=== PATIENT | male | born 1955 | race Caucasian/White ===

== ENCOUNTER 2024-11-26 07:38 | Outpatient (CLI) | payer MEDICARE, SELFPAY ==
--- OUTSIDE RECORDS SUMMARY | 2024-11-26 07:51 | XMS_ITS | Referral Summary ---
Author Organization [facility] Address [address] [place] [address] Care Team Providers Care Stoneworking Belt Sander Name Role Phone Gunnar Miguel MD Primary Care Provider Encounters Date Type Department Care Team Description 11/22/2024 Telephone [facility] [address] [place] [address] Medical Office Building [address], [address] [place] [phone] Analilia Anaya RN TM scheduling and labs 11/22/2024 Results Follow-Up [facility] [address] [facility] 2nd Floor [address] [place] [address] Robel Graves MD Surgical pathology 11/21/2024 7:51 AM CDT Anesthesia Event [facility] [address] [place] [phone] Dano Monae MD 11/21/2024 8:00 AM CDT - 11/21/2024 8:30 AM CDT Surgery [facility] [address] [place] [phone] Robel Graves MD ESOPHAGEAL BALLOON DISTENTION STUDY DIAGNOSTIC WITH PROVOCATION 11/21/2024 7:02 AM CDT - 11/21/2024 8:35 AM CDT Hospital Encounter [facility] [address] [place] [phone] Robel Graves MD Achalasia Discharge Disposition: Discharge to home or self care 10/31/2024 Telephone [facility] [address] [facility] Medical Office Building [address], [address] [place] [address] Analilia Anaya RN GI Preprocedure; Scheduling Testing/Treatment; AC hold recs from Last 3 Months Allergies No known active allergies Medications clopidogreL (PLAVIX) 75 mg tablet Take 1 tablet (75 mg total) by mouth daily Active rosuvastatin (CRESTOR) 20 mg tablet Take 1 tablet (20 mg total) by mouth daily Active Active Problems Problem Noted Date Diagnosed Date Achalasia 10/31/2024 Social History Tobacco Use Types Packs/Day Years Used Date Smoking Tobacco: Never Tobacco Cessation:Counseling Given: Not Answered AUDIT-C Answer Date Recorded Q1: How often do you have a drink containing alc ohol? 2-3 times a week 11/21/2024 Q2: How many drinks containi ng alcohol do you have on a typical day when you are drinking? 3 or 4 11/21/2024 Q3: How often do you have si x or more drinks on one occasion? Less than monthly 11/21/2024 Personal Safety Answer Date Recorded Have you ever been in or are you currently in a harmful physical or emotional relationship or is someone making you feel afraid or unsafe? 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 Gender Identity Not on file Sexual Orientation Not on file Last Filed Vital Signs Vital Sign Reading Time Taken Comments Blood Pressure 124/67 11/21/2024 8:30 AM CDT Pulse 50 11/21/2024 8:30 AM CDT Temperature 36.4 C (97.6 F) 11/21/2024 7:24 AM CDT Respiratory Rate 21 11/21/2024 8:30 AM CDT Oxygen Saturation 99% 11/21/2024 8:30 AM CDT Inhaled Oxygen Concentration - - Weight 88.5 kg (195 lb) 11/21/2024 7:24 AM CDT Height 190.5 cm (6' 3) 11/21/2024 7:24 AM CDT Body Mass Index 24.37 11/21/2024 7:24 AM CDT Plan of Treatment Not on file Procedures Procedure Name Priority Date/Time Associated Diagnosis Comments SURGICAL PATHOLOGY Routine 11/21/2024 7:56 AM CDT Achalasia ENDO ADD ON ESOPHAGOGASTRODUODENOSCOPY BIOPSY 11/21/2024 7:51 AM CDT Achalasia Special Needs endoflip ESOPHAGEAL BALLOON DISTENTIO N STUDY DIAGNOSTIC WITH PROVOCATION 11/21/2024 7:51 AM CDT Achalasia Special Needs endoflip EGD 11/21/2024 7:43 AM CDT from Last 3 Months Results * Surgical pathology (11/21/2024 7:56 AM CDT) Tissue (Gastric/Stomach biopsy) 11/21/2024 7:56 AM CDT Narrative PATHOLOGY [facility] - 11/22/2024 7:57 AM CDT [address] [address] Tele: Lilly Cervantes MD - Ship Ceiler Note to Patients: This report may contain a detailed description of human tissue sent by a health care provider to the laboratory for pathologic evaluation. The content of this report is essential for diagnosis and may provide important critical findings. This information may be unfamiliar to patients to review without a medical professional present. It is advised that the patient review this report in the presence of a health care provider who can answer questions and explain the details. SURGICAL PATHOLOGY REPORT Patient Name: NICHOLE KIM Address: [address] [place] [address] Gender: M : 1955 (Age: 68) Service: Gastro Location: [facility], Hospital #: [id number] Patient Type: [facility] SAME DAY SURGERY Taken: 11/21/2024 Received 11/21/2024 Reported: 11/22/2024 Physician(s): Orion Lan Dr., M.D. DIAGNOSIS: Stomach-biopsy: - Minimal histologic change esb/11/22/2024 07:57 Examining Pathologist: Tino Arce M.D. Report Reviewed and Electronically Signed By Tino Arce M.D. SPECIMEN TYPE: A: GASTRIC BIOPSIES CLINICAL IMPRESSION AND HISTORY: Suspected achalasia. Patchy mild inflammation was found in the gastric body and antrum. GROSS DESCRIPTION: Received in formalin labeled [facility] and gastric biopsies is a 0.2 x 0.2 x 0.2 cm king tissue fragment. The specimen is filtered and entirely submitted in A1. jxi/11/21/2024 14:01 [facility] MICROSCOPIC DESCRIPTION: Review of the part A material reveals variably oriented gastric mucosa. The surface is intact and free of ulceration. No metaplastic changes are noted. Exocytosis of significant inflammatory cells into the epithelium is not evident. No dysplastic or malignant changes are noted. On routine staining of the material no H. pylori organisms are noted. Deeper glands do not exhibit dropout. Scattered chronic inflammation is noted within the lamina propria in a superficial fashion. Clerical Data Follows A; 27785 REPORT IMAGES AND/OR SCANNED DOCUMENTS ONLY VIEWABLE IN PDF FORMAT The immunohistochemical test(s) cited in this report, if any, was developed and its performance characteristics determined by [facility]. It has not been cleared or approved by the U.S. Food and Drug Administration. The FDA has determined that such clearance or approval is not necessary. This test is used for clinical purposes. It should not be regarded as investigational or for research. [facility] is certified under the Clinical Laboratory Improvement Amendments of 1988 (CLIA) as qualified to perform high complexity testing. Immunostains were performed on formalin-fixed paraffin embedded tissue using a polymer diaminobenzidine chromogen detection system. Antibodies used may include clone SP1 (rabbit monoclonal, estrogen receptor), clone 1E2 (rabbit monoclonal progesterone receptor), Ki-67 (rabbit monoclonal, 30-9), CD117 (rabbit polyclonal, c-kit), and anti-Her-2/maureen (4B5) (rabbit monoclonal primary antibody). In the event that immunohistochemistry or special stains have been performed, attending physician has confirmed appropriateness of controls. Frozen section, operating room consultation, gross examination and dissection, and case sign out may have been performed in part or completely in the following laboratories: [facility], [address] [facility], [place], [place] [address] [place] [address], [address], [place] [address]. Robel Graves MD LAB PATHOLOGY ORDERABLES Fi nal Result PATHOLOGY [facility] Laboratory Receiving [address] [place] [address] * EGD (11/21/2024 7:43 AM CDT) Anatomical Region Laterality Modality Other Narrative Procedure Note Robel Graves MD - 11/21/2024 7:43 AM CDT ENDOSCOPY LAB Patient Name: Nichole Kim Procedure Date: 11/21/2024 7:43 AM Admit Type: Outpatient Room: [facility] Date of : 1955 Instrument Name: [id number] Gender: Male Note Status: Finalized Procedure: Upper GI endoscopy Indications: Suspected achalasia; Suspected achalasia withrecent EGD with botox inj Comorbidities See the other procedure note for documentation of comorbidities Providers: Robel Graves M.D. Referring MD: Gunnar Miguel M.D. Medicines: Monitored Anesthesia Care Complications: No immediate complications. Estimated Blood Loss: Estimated blood loss: none. Procedure: Pre-Anesthesia Assessment: - Prior to the procedure, a History and Physicalwas performed, and patient medications, allergies and sensitivities were reviewed. The patient'stolerance of previous anesthesia was reviewed. - Immediately prior to administration ofmedications, the patient was re-assessed for adequacy to receive sedatives. The benefits, risks, and alternatives to theprocedure and sedation were discussed and informed consentwas obtained. The scope was passed under direct vision. The Endoscope was introduced through the mouth, and advanced to the second part of duodenum. The upperGI endoscopy was accomplished without difficulty. The patient tolerated the procedure well. Findings: Relatively straight and mildly dilated esophagus with retainedcontents that were suctioned immediately. A hypertonic lower esophagealsphincter was noted at 51 cm from the incisors with moderate resistance with endoscope advancement. With the patient in the left lateral decubitus position, a 16 cm long 3 mm diameter functional lumen imaging probe (FLIP), with a volume-based barostat bag, was placed at the lower esophageal sphincter using endoscopic visualization for thediagnostic evaluation of achalasia. Saline was infused into the bag to a volumeof 60 mL. The observed distensibility at that volume was less than 0.5 mm2/mmHg with a minimum diameter of 4 mm. FLIP Topography wasperformed using stepwise distensions and demonstrated diminished contractility. The catheter was deflated and withdrawn. Patchy mild inflammation characterized by adherent blood and erythema was found in the gastric body and in the gastric antrum. Biopsieswere taken with a cold forceps for histology. The examined duodenum was normal. Impression: - Relatively straight and mildly dilated esophagus with retained contents that were suctioned immediately. A hypertonic lower esophagealsphincter with resistance noted. FLIP confirms nonspastic achalasia. - Gastritis. Biopsied. - Normal examined duodenum. Recommendation: - The patient will be observed post-procedure,until all discharge criteria are met. - Observe patient's clinical course. - Continue present medications. - Await pathology results. - Resume previous diet. - Arrange telemedicine visit with me to discuss therapeutic options including peroral endoscopic myotomy. - In the unusual situation that you developabdominal, bleeding or other significant problems in the days following this procedure please call [phone] ask for my nurse, Analilia Anaya. After hours and evenings please call [phone] and speak to theGI fellow dust control engineer. Please tell the fellow that Dr. Graves did your procedure and that you were instructed to have the fellow call me or thephysician covering for me to discuss the management of your condition. If you have an urgent problem, please goto the nearest emergency room and have the ER doctorcall my office during the day or [facility] transfer ([phone]) center after hours and weekends to arrange admission or transfer to our facility. Attending Participation: I personally performed the entire procedure. Electronically signed by Robel Graves MD Robel Graves M.D. 11/21/2024 8:07:47 AM This document was signed electronically. Number of Addenda: 0 Note Initiated On: 11/21/2024 7:43 AM Scope In: Scope Out: Robel Graves MD ENDOSCOPY PROCEDURES Final Result from Last 3 Months Insurance MEDICARE MEDICARE [employer] SENIOR SUPPLEMENT Member Subscriber Plan / Payer (Ef fective 2024-Present) Name:Nichole Kim Relation to Subscriber:Self Name:Nichole Kim Payer ID:[id number] Group ID:[id number] Type:[employer] Address: [address] [address] [place] [address] Advance Directives For more information, please contact: [phone] * Full Code (Latest Code Status on File) Date Activated Date Inactivated Comments 11/21/2024 7:18 AM 11/21/2024 12:36 PM Care Teams Stoneworking Belt Sander Relationship Specialty Start Date End Date Gunnar Miguel MD [address] [place] [id number] PCP - General Internal Medicine 10/28/24
--- OUTSIDE RECORDS SUMMARY | 2024-11-26 07:51 | XMS_ITS | Clinical Summary ---
Author Organization [facility] Address [address] [place] [address] Care Team Providers Care Humanities Department Chair Name Role Phone Gunnar Migule MD Primary Care Provider [phone] Allergies No known active allergies Medications clopidogreL (PLAVIX) 75 mg tablet Take 1 tablet (75 mg total) by mouth daily Active rosuvastatin (CRESTOR) 20 mg tablet Take 1 tablet (20 mg total) by mouth daily Active Active Problems Problem Noted Date Diagnosed Date Achalasia 10/31/2024 Encounters Date Type Department Care Team Description 11/22/2024 Telephone [facility] [address] [facility] Medical Office Building [address], [address] [place] [phone] Analilia Anaya RN TM scheduling and labs 11/22/2024 Results Follow-Up [facility] [address] [facility] 2nd Floor [address] [place] [address] Robel Graves MD Surgical pathology 11/21/2024 8:00 AM CDT - 11/21/2024 8:30 AM CDT Surgery [facility] [address] [place] [phone] Robel Graves MD ESOPHAGEAL BALLOON DISTENTION STUDY DIAGNOSTIC WITH PROVOCATION 11/21/2024 7:51 AM CDT Anesthesia Event [facility] [address] [place] [phone] Dano Monae MD 11/21/2024 7:02 AM CDT - 11/21/2024 8:35 AM CDT Hospital Encounter [facility] [address] [place] [address] Robel Graves MD Achalavirgena Discharge Disposition: Discharge to home or self care 10/31/2024 Telephone [facility] [address] [facility] [address], [address] [place] [address] Analilia Anaya RN GI Preprocedure; Scheduling Testing/Treatment; AC hold recs from Last 3 Months Surgical History Surgery Date Site/Laterality Comments HERNIA REPAIR Medical History Medical History Date Comments High cholesterol CAD (coronary artery disease) Social History Tobacco Use Types Packs/Day Years [...] on file 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 Gender Identity Not on file Sexual Orientation Not on file Obstetrics History Last Filed Vital Signs Vital Sign Reading [...] 11/21/2024 7:24 AM CDT Plan of Treatment Health Maintenance Due Date Last Done Comments Colon Cancer Screening-Colonoscopy 1955 Depression Screening 1955 Hepatitis C Screening 1955 Prostate Cancer Screening-PSA 1955 Hepatitis B Screening 1972 Well Visit 65+ 12/14/2019 Covid-19 Vaccine (8 2023-2 5 season) 2024 02/20/2024, 02/22/2023, 02/25/2022, Additional history exists Fall Risk Assessment 11/21/2025 11/21/2024 DTaP/Tdap/Td Vaccine (3 - Td or Tdap) 07/18/2033 07/18/2023, 03/16/2021 Pneumococcal vaccine 65+ Completed 03/16/2021, 02/26 Zoster Vaccine Completed 09/29/2023, 07/18/2023 Influenza Vaccine Completed 02/20/2024, , 02/25/2022, Additional history exists Procedures Procedure Name Priority Date/Time Associated Diagnosis [...] biopsy) 11/21/2024 7:56 AM CDT Narrative PATHOLOGY [facility] - 11/22/2024 7:57 AM CDT [address] [address] Tele: Lilly Cervantes MD - Environmental Protection Inspector Note to Patients: This report may contain [...] PATHOLOGY REPORT Patient Name: NICHOLE KIM Address: [address] [place] [address] Gender: M : 1955 (Age: 68) Service: Gastro Location: [facility], Hospital #: [id number] Patient Type: [facility] SAME DAY SURGERY [...] GROSS DESCRIPTION: Received in formalin labeled NICHOLE KIM and gastric biopsies is a 0.2 x 0.2 x 0.2 cm king tissue fragment. The specimen is filtered and entirely submitted in A1. jxi/11/21/2024 14:01 [facility] MICROSCOPIC DESCRIPTION: Review of the part A [...] a superficial fashion. Clerical Data Follows A; [id number] REPORT IMAGES AND/OR SCANNED DOCUMENTS ONLY VIEWABLE IN PDF FORMAT The immunohistochemical test(s) cited in this report, if any, was developed and its performance characteristics determined by [facility]. It has not been cleared or approved by the U.S. Food and Drug Administration. The FDA has determined that such clearance or approval is not necessary. This test is used for clinical purposes. It should not be regarded as investigational or for research. [facility] is certified under the Clinical Laboratory [...] part or completely in the following laboratories: [facility], [address] [place] [address], [address] [place] [address]. Robel Graves MD LAB PATHOLOGY ORDERABLES Fi nal Result PATHOLOGY [facility] Laboratory Receiving [address] [place] [address] * EGD (11/21/2024 7:43 AM CDT) Anatomical Region Laterality Modality Other Narrative Procedure Note Robel Graves MD - 11/21/2024 7:43 AM CDT ENDOSCOPY LAB Patient Name: Nichole Kim Procedure Date: 11/21/2024 7:43 AM Admit Type: Outpatient Room: [facility] Date of : 1955 Instrument Name: [id number] [...] the days following this procedure please call [phone] ask for my nurse, Analilia Anaya. After hours and evenings please call [phone] and speak to theGI fellow land commissioner. Please tell the fellow that Dr. Graves did your procedure and that you were instructed to have the fellow call me or thephysician covering for me to discuss the management of your condition. If you have an urgent problem, please goto the nearest emergency room and have the ER doctorcall my office during the day or [facility] transfer ([phone]) center after hours and weekends to arrange [...] Months Insurance MEDICARE MEDICARE [employer]ET[employer] SENIOR SUPPLEMENT Advance Directives For more information, please contact: [phone] * Full Code (Latest Code Status on File) Date Activated Date Inactivated Comments 11/21/2024 7:18 AM 11/21/2024 12:36 PM Care Teams Humanities Department Chair Relationship Specialty Start Date End Date Gunnar Miguel MD [address] [place], [place] [id number] PCP - General Internal Medicine 10/28/24
--- OUTSIDE RECORDS SUMMARY | 2024-11-26 07:51 | XMS_ITS | Encounter Summary ---
Author Organization [facility] Address [address] [place] [address] Phone Care Team Providers Care Electrician Underground Name Role Phone Gunnar Miguel MD Primary Care Provider [phone] Reason for Visit * Reason Onset Date Comments Test Results 11/22/2024 Encounter Details Date Type Department Care Team (Late st Contact Info) Description 11/22/2024 Results Follow-Up [facility] Gastroenterology [address] [facility] 2nd Floor [address] [place] [address] Roebl Graves MD [address] [place] [address] Surgical pathology Social History Tobacco Use Types Packs/Day Years Used Date Smoking Tobacco: Never AUDIT-C Answer Date Recorded Q1: How often [...] on file 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
--- OUTSIDE RECORDS SUMMARY | 2024-11-26 07:52 | XMS_ITS | Clinical Summary ---
Author Organization [facility] Address [facility] [place] [address] Care Team Providers Care Operations Lead Name Role Phone Gunnar Miguel MD Primary Care Provider [phone] Allergies No known active allergies Medications clopidogrel (PLAVIX) 75 MG tablet Take 1 tablet (75 mg total) by mouth daily. Active rosuvastatin (CRESTOR) 20 MG tablet Take 1 tablet (20 mg total) by mouth nightly at bedtime. Active omeprazole (PRILOSEC) 40 MG capsule Take 1 capsule (40 mg total) by mouth daily. Active Boswellia-Gluco samine-Vit D (OSTEO BI-FLEX ONE PER DAY OR) 11/02/19 25 Discontinu ed(Patient Discharge) Active Problems Problem Noted Date Diagnosed Date Achalasia 10/31/2024 Aspiration pneumonia ([facility]) Esophageal dysphagia 05/17/2024 Weight loss 05/17/2024 Encounters Date Type Department Care Team Description 10/31/2024 Scan [facility] Scanned, Doc Med Group 10/31/2024 Travel 10/31/2024 Telephone [facility] Multispecialty Care - [address] [place] [address] Onel Aguiar MD Prior Authorization ([id number]); Called To Cancel Office Appt. 10/31/2024 [facility] [address] [place] [phone] Onel Aguiar MD 10/29/2024 Telephone [facility] Multispecialty Care - [address] [place] [phone] Onel Aguiar MD Referral from Last 3 Months Social History Tobacco Use Types Packs/Day Years Used Date Smoking Tobacco: Never Smokeless Tobacco: Never Tobacco Cessation:Counseling Given: No Alcohol Use Standard Drinks/Week Comments Yes 8.3 (1 standard drink = 0.6 oz p ure alcohol) twice a week [facility] Utilities Answer Date Recorded In the past 12 months has th e Silent Communication, gas, oil, or water [email or web address] threatened to shut off services in your home? No 05/18/2024 Humiliation, Afraid, Rape, and Kick questionnair e Answer Date Recorded Within the last year, have y ou been afraid of your partner or ex-partner? No 05/18/2024 Within the last year, have y ou been humiliated or emotionally abused in other ways by your partner or ex-partner? No Within the last year, have y ou been kicked, hit, slapped, or otherwise physically hurt by your partner or ex-partner? No 05/18/2024 Within the last year, have y ou been raped or forced to have any kind of sexual activity by your partner or ex-partner? No 05/18/2024 Overall Financial Resource Strain (CARDIA) Answe r Date Recorded How hard is it for you to pa y for the very basics like food, housing, medical care, and heating? Not hard at all 05/18/2024 PHQ-2 Answer Date Recorded Patient Health Questionnaire-2 Score 0 06/14/2024 Hunger Vital Sign Answer Date Recorded Within the past 12 months, y ou worried that your food would run out before you got the money to buy more. Never true 05/18/20 24 Within the past 12 months, t he food you bought just didn't last and you didn't have money to get more. Never true 05/18/2024 PRAPARE - Transportation Answer Date Re corded In the past 12 months, has l ack of transportation kept you from medical appointments or from getting medications? No 04/29 In the past 12 months, has l ack of transportation kept you from meetings, work, or from getting things needed for daily living? No 05/18/2024 Housing Stability Vital Sign Answer Que e Recorded In the last 12 months, was t here a time when you were not able to pay the mortgage or rent on time? No 05/18/2024 In the past 12 months, how m any times have you moved where you were living? 0 05/18/2024 At any time in the past 12 m [facility], were you homeless or living in a detention (including now)? No 05/18/2024 Sex and Gender Information Value Date Recorded Sex Assigned at Not on file Legal Sex Male 2:17 PM PIPELAYER Gender Identity Not on file Sexual Orientation Not on file Last Filed Vital Signs Vital Sign Reading Time Taken Comments Blood Pressure 120/70 06/14/2024 3:02 PM PIPELAYER Pulse 60 06/14/2024 3:02 PM PIPELAYER Temperature 36.9 C (98.4 F) 06/14/2024 3:02 PM PIPELAYER Respiratory Rate 18 06/14/2024 3:02 PM PIPELAYER Oxygen Saturation 97% 06/14/2024 3:02 PM PIPELAYER Inhaled Oxygen Concentration - - Weight 88.5 kg (195 lb) 10/31/2024 2:58 PM CDT Height 190.5 cm (6' 3) 10/31/2024 2:58 PM CDT Body Mass Index 24.37 10/31/2024 2:58 PM CDT Plan of Treatment Health Maintenance Due Date Last Done Comments ASCVD LDL 1954 Colorectal Cancer Screening Colonoscopy (10 Years) 1954 Hepatitis C 1972 RSV Immunization or 60+ Years (1 - Risk 60-74 years 1-dose series) 2014 Annual Medicare Wellness Visit 12/14/2019 COVID-19 Vaccine ( season) 2024 02/20/2024, 02/22/2023, 02/25/2022, Additional history exists DTaP, Tdap and Td Vaccines (3 - Td or Tdap) 07/18/2033 07/18/2023, 03/16/2021 Pneumococcal Vaccine: 50+ Years Completed 03/16/2021, 03/12/2020 Zoster Vaccines Completed 09/29/2023, 07/18/2023 PHQ-2 (Physician Atkinson) Completed 06/14/2024 Meningococcal B Vaccine Aged Out No l onger eligible based on patient's age to complete this topic Meningococcal Vaccine Aged Out No ángel jer eligible based on patient's age to complete this topic RSV Immunizations Under 20 Months Aged Out No longer eligible based on patient's age to complete this topic Goals Goal Patient Goal Type Associated Problems Recent Progress Patient-Stated? Author Health - patient able to perform ADLs independently Lifestyle No Suma Gagnon, RN Insurance MEDICARE [employer] Advance Directives * Full Code (Latest Code Status on File) Date Activated Date Inactivated Comments 05/18/2024 12:44 AM 05/25/2024 3:58 PM Care Teams Operations Lead Relationship Specialty Start Date End Date Gunnar Miguel MD [address] [place] [phone] PCP - General INTERNAL MEDICINE 05/17/24
[2024-11-26 08:01] LABS: Hematocrit 41.8 % (37.0-46.0); Hemoglobin 13.7 g/dL (12.4-15.3); Mean Corpuscular HGB Conc 32.8 g/dL (32-36); Mean Corpuscular Hemoglobin 32.8 pg (27.0-31.0); Mean Corpuscular Volume 100.0 fL (78.0-102.0); Platelet Count Result 132 K/mm3 (150-420); Red Blood Count 4.18 M/mm3 (4.70-6.10); White Blood Count 4.8 K/mm3 (4.8-10.8)
[2024-11-26 08:12] LABS: INR 1.1; Prothrombin Time 11.6 Seconds (9.50-12.1)
[2024-11-26 08:19] LABS: Alanine Aminotransferase 17 U/L (6-50); Albumin Level 4.3 g/dL (3.5-5.1); Alkaline Phosphatase 53 U/L (38-126); Anion Gap 4 mmol/L (4-12); Aspartate Amino Transferase 26 U/L (17-59); Bilirubin,Total 1.3 mg/dL (0.2-1.3); Blood Urea Nitrogen 15 mg/dL (9-20); Calcium 9.4 mg/dL (8.4-10.2); Carbon Dioxide 30 mmol/L (22-30); Chloride 106 mmol/L (98-107); Estimated Glomerular Filt Rate > 60; Glucose 93 mg/dL (65-110); Osmolality Calculated 290 mOsm/kg (285-295); Potassium 4.2 mmol/L (3.4-5.0); Sodium 140 mmol/L (137-145); Total Protein 7.0 g/dL (6.3-8.2)
== END 2024-11-26 07:39 | disposition home or self-care (01) ==
DX: Z79.01 Long term (current) use of anticoagulants (principal); K22.0 Achalasia of cardia
CPT/HCPCS: 36415; 80053; 85025; 85027; 85610

== ENCOUNTER 2024-12-26 13:41 | Emergency (ER) | payer MEDICARE, SELFPAY ==
[2024-12-26 13:44] VITALS: BP 123/87; PULSE 78; RESP 18; TEMP 36.6; O2SAT 98
--- OUTSIDE RECORDS SUMMARY | 2024-12-26 13:44 | XMS_ITS | Encounter Summary ---
Author Organization [facility] Address [address] [place] [address] Phone Care Team Providers Care Interior Block Wirer Name Role Phone Gunnar Miguel MD Primary Care Provider + [phone] Reason for Visit * Reason Onset Date Comments Test Results 11/22/2024 Encounter Details Date Type Department Care Team (Late st Contact Info) Description 11/22/2024 Results Follow-Up [facility] Gastroenterology [address] [facility] [address] [place] [address] Robel Graves MD [address] [place] [address] Surgical pathology Social History Tobacco Use Types [...] on file 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
--- OUTSIDE RECORDS SUMMARY | 2024-12-26 13:44 | XMS_ITS | Encounter Summary ---
Author Organization [facility] Address [address] [place] [address] Phone Care Team Providers Care Cub Reporter Name Role Phone Gunnar Miguel MD Primary Care Provider + [phone] Encounter Details Date Type Department Care Team (Late st Contact Info) Description 12/25/2024 Orders Only [facility] Gastroenterology [address] [place] [address] Medical Office [address] [place] [address] Analilia Anaya RN Social History Tobacco Use Types Packs/Day Years Used Date Smoking Tobacco: Never AUDIT-C Answer Date Recorded Q1: How often do you have a drink containing alc ohol? 2-3 times a week 12/23/2024 Q2: How many drinks containi ng alcohol do you have on a typical day when you are drinking? 3 or 4 12/23/2024 Q3: How often do you have si x or more drinks on one occasion? Never 12/23/2024 Personal Safety Answer Date Recorded Have you ever been in or are you currently in a harmful physical or emotional relationship or is someone making you feel afraid or unsafe? 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 Gender Identity Not on file Sexual Orientation Not on file documented as of this encounter Ordered Prescriptions Prescription Sig Dispense Quantity Refills Last Filled Start Date End Date omeprazole (PriLOSEC) 40 mg capsule Take 1 capsule (40 mg total) by mouth 2 (two) times a day before breakfast and dinner Pt to open capsule and pour contents onto a spoon of applesauce 60 capsule 1 12/25/2024 documented in this encounter Plan of Treatment Not on file documented as of this encounter Visit Diagnoses Not on filedocumented in this encounter Discontinued Medications Medication Sig Discontinue Reason Start Date End Da te pantoprazole DR (PROTONIX) 40 mg EC tabletIndications:Treatm ent of Non-Bleeding Gastric Disorder Take 1 tablet (40 mg total) by mouth 2 (two) times a day Alternate therapy 12/24/2024 12/25/2024 documented as of this encounter Care Teams Cub Reporter Relationship Specialty Start Date End Date Gunnar Miguel MD [address] [place] [address] PCP - General Internal Medicine 10/28/24 documented as of this encounter
--- OUTSIDE RECORDS SUMMARY | 2024-12-26 13:44 | XMS_ITS | Encounter Summary ---
Author Organization [facility] Address [address] [place] [address] Phone Care Team Providers Care Real Estate Photographer Name Role Phone Gunnar Miguel MD Primary Care Provider + [phone] Reason for Visit * Reason Onset Date Comments returning pt call 12/25/2024 Encounter Details Date Type Department Care Team (Late st Contact Info) Description 12/25/2024 Telephone [facility] Gastroenterology [address] [place] [address] Medical Office [address] [place] [address] Analilia Anaya RN returning pt call Social History Tobacco Use Types Packs/Day Years [...] on file 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 Discussed medications recommendations. Pt verbalized understanding. * Telephone Encounter - Analilia Anaya RN - 12/25/2024 3:19 PM CDT Pt called an left a vm regarding medications s/p POEM. Per dr. Graves, resume plavix on 12/27 andchange PPI to capsule. Attempted to return pt call to discuss, no answer, left a message. Rx for PPI updated. documented in this encounter Plan of Treatment Not on file documented as of this encounter Visit Diagnoses Not on filedocumented in this encounter Care Teams Real Estate Photographer Relationship Specialty Start Date End Date Gunnar Miguel MD [address] [place] [id number] PCP - General Internal Medicine 10/28/24 documented as of this encounter
--- OUTSIDE RECORDS SUMMARY | 2024-12-26 13:44 | XMS_ITS | Clinical Summary ---
Author Organization [facility] Address [address] [place] [address] Care Team Providers Care Spot Washer Name Role Phone Gunnar Miguel MD Primary Care Provider [phone] Allergies No known active allergies Medications rosuvastatin (CRESTOR) 20 mg tablet Take 1 tablet (20 mg total) by mouth daily Active clopidogreL (PLAVIX) 75 mg tablet Take 1 tablet (75 mg total) by mouth daily 12/28/19 25 Active omeprazole (PriLOSEC) 40 mg capsule Take 1 capsule (40 mg total) by mouth 2 (two) times a day before breakfast and dinner Pt to open capsule and pour contents onto a spoon of applesauce 60 capsule 12/26/19 25 025 Active clopidogreL (PLAVIX) 75 mg tablet Take 1 tablet (75 mg total) by mouth daily [address] (PROTONIX) 40 mg EC tabletIndicati ons:Treatment of Non-Bleeding Gastric Disorder Take 1 tablet (40 mg total) by mouth 2 (two) times a day 60 tablet 12/25/[address] (PROTONIX) 40 mg EC tabletIndicati ons:Treatment of Non-Bleeding Gastric Disorder Take 1 tablet (40 mg total) by mouth 2 (two) times a day 60 tablet 1 12/25/19 25 025 Discontinued(Al ternate therapy) Active Problems Problem Noted Date Diagnosed Date Moderate protein-calorie malnutrition 12/24/2024 Coronary artery disease invo lving jena coronary artery of jena heart without angina pectoris 12/23/2024 Assessment & Plan (12/23/2024 4:21 PM CDT): -CAD s/p stenting of RCA 2017 and dyslipidemia. GI recommends to hold stain for now and to also hold Plavix for 3 more days. Dyslipidemia 12/23/2024 Assessment & Plan (12/23/2024 4:21 PM CDT): -CAD s/p stenting of RCA 2017 and dyslipidemia. GI recommends to hold stain for now and to also hold Plavix for 3 more days. Gastroesophageal reflux disease without esophagi tis 12/23/2024 Assessment & Plan (12/23/2024 4:21 PM CDT): - omeprazole 40 mg b.i.d. x 8 weeks per GI Achalasia 10/31/2024 Assessment & Plan (12/23/2024 8:00 PM CDT): -Non spastic achalasia s/p POEM per Dr. Graves. Currently no complaints and tolerating CLD when I saw him. -post procedure recommendations: NPO for 2 hours after procedure then clear liquid diet today. Full liquid diet starting tomorrow for 14 days and then followed by pureed/soft diet for 14 more days. Patient to take omeprazole 40 mg b.i.d. x 8 weeks. GI recommends holding Plavix for 3 additional days. Patient to avoid heavy lifting for greater than 20 lb for 4 weeks. Avoid positive pressure ventilation for 4 weeks. Avoid NG tube placement. -Tylenol and dilaudid (per GI MD) prn ordered for pain control -Zofran prn for nausea -AM CBC/CMP Encounters Date Type Department Care Team Description 12/25/2024 Orders Only [facility] [address] [place] [address] [address] [place] [address] Analilia Anaya RN 12/25/2024 Telephone [facility]enter[facility] [address] [place] [address] Office [address] [place] [address] Analilia Anaya RN returning pt call 12/23/2024 1:36 PM CDT Anesthesia Event [facility] [address] [place] [phone] Vishnu Weber MD 12/23/2024 1:15 PM CDT - 12/23/2024 2:15 PM CDT Surgery [facility] [address] [place] [phone] Robel Graves MD TRANSORAL LWR ESOPH MYOTOMY [id number] 12/23/2024 12:03 PM CDT - 12/24/2024 2:46 PM CDT Hospital Encounter [address] [address] Robel Graves MD Hart, MD Reyna Steele Bazgha Imtiaz, DO Tahir Ulrich, MD Melanie Rios (Primary Dx) Discharge Disposition: Discharge to home or self care 2024 Telephone [facility] [address] [place] [address] Medical Office [address] [place] [address] Analilia Anaya RN Scheduling Testing/Treatment ; GI Preprocedure; AC hold recs 12/12/2024 12:00 PM CDT Telemedicine [facility] [address] [facility] 2nd [address] [place] [address] Robel Graves MD Achalasia (Primary Dx) 11/26/2024 Orders Only [facility] Scanning, Provider 11/22/2024 Telephone [facility] [address] [place] [address] Medical Office Building [address] [place] [phone] Analilia Anaya RN TM scheduling and labs 11/22/2024 Results Follow-Up [facility] [address] [facility] [address] [place] [address] Robel Graves MD Surgical pathology 11/21/2024 8:00 AM CDT - 11/21/2024 8:30 AM CDT Surgery [facility] [address] [place] [phone] Robel Graves MD ESOPHAGEAL BALLOON DISTENTION STUDY DIAGNOSTIC WITH PROVOCATION 11/21/2024 7:51 AM CDT Anesthesia Event [facility] [address] [place] [phone] Dano Monae MD 11/21/2024 7:02 AM CDT - 11/21/2024 8:35 AM CDT Hospital Encounter 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 Gender Identity Not on file Sexual Orientation Not on file Obstetrics History Last Filed Vital Signs Vital Sign Reading Time Taken Comments Blood Pressure 128/75 12/24/2024 1:22 PM CDT Pulse 68 12/24/2024 1:22 PM CDT Temperature 36.6 C (97.8 F) 12/24/2024 1:22 PM CDT Respiratory Rate 14 12/24/2024 1:22 PM CDT Oxygen Saturation 98% 12/24/2024 1:22 PM CDT Inhaled Oxygen Concentration - - Weight 84.8 kg (187 lb) 12/23/2024 12:51 PM CDT Height 190.5 cm (6' 3) 12/23/2024 12:51 PM CDT Body Mass Index 23.37 12/23/2024 12:51 PM CDT Plan of Treatment Health Maintenance Due Date Last Done Comments Colon Cancer Screening-Colonoscopy 1955 Depression Screening 1955 Hepatitis C Screening 1955 Hepatitis B Screening 1972 Well Visit 65+ 12/14/2019 Covid-19 Vaccine (2023-2 5 season) 2024 02/20/2024, 02/22/2023, 02/25/2022, Additional history exists Influenza Vaccine (#1) 2025 , 02/22/2023, 02/25/2022, Additional history exists Fall Risk Assessment 12/24/2025 12/24/2024 DTaP/Tdap/Td Vaccine (3 - Td or Tdap) 07/18/2033 07/18/2023, 03/16/2021 Pneumococcal vaccine 65+ Completed 03/16/2021, 02/26 Zoster Vaccine Completed 09/29/2023, 07/18/2023 Procedures Procedure Name Priority Date/Time Associated Diagnosis Comments EGFR Routine 12/24/2024 5:27 AM CDT DIFFERENTIAL AUTO Routine 12/24/2024 5:27 AM CDT CBC WITH AUTO DIFFERENTIAL Routine 12/24 5:27 AM CDT COMPREHENSIVE METABOLIC PANEL Routine 5:27 AM CDT KS AN PROCEDURE PLACEHOLDER Routine 11/27 1:58 PM CDT KS AN ELECTIVE ENDOTRACHEAL AIRWAY Routine 12/23/2024 1:58 PM CDT ESOPHAGEAL BALLOON DISTENSIO N STUDY DIAGNOSTIC WITH PROVOCATION 12/23/2024 1:37 PM CDT [facility] Special Needs 23 hr obs, inpt pharm consult TRANSORAL LWR ESOPH MYOTOMY [id number] 12/23/2024 1:37 PM CDT [facility] Special Needs 23 hr obs, inpt pharm consult PERORAL ENDOSCOPIC MYOTOMY (POEM) 12/23/2024 1:19 PM CDT SCAN - LABS 11/26/2024 SURGICAL PATHOLOGY Routine 11/21/2024 7:56 AM CDT [facility] ENDO ADD ON ESOPHAGOGASTRODUODENOSCOPY BIOPSY 11/21/2024 7:51 AM CDT [facility] Special Needs endoflip ESOPHAGEAL BALLOON DISTENTIO N STUDY DIAGNOSTIC WITH PROVOCATION 11/21/2024 7:51 AM CDT [facility] Special Needs endoflip EGD 11/21/2024 7:43 AM CDT from Last 3 Months Results * eGFR (12/24/2024 5:27 AM CDT) eGFR >90 >=60 mL/min/1. 73 m2 Comment: Interpretive Data Reference Interval Normal >/= 90 mL/min/1.73m2 Mildly decreased* 60 - 89 mL/min/1.73m2 Mildly to moderately decreased 45 - 59 mL/min/1.73m2 Moderately to severely decreased 30 - 44 mL/min/1.73m2 Severely decreased 15 - 29 mL/min/1.73m2 Kidney Failure < 15 mL/min/1.73m2 *Relative to young adult level Estimated glomerular filtration rate is determined by the 2020 CKD-EPI equation recommended by the National Kidney Foundation (A Unifying Approach to GFR Estimation: Recommendations of the NKF-ASK Task Force on Reassessing the Inclusion of Race in Diagnosing Kidney Disease, JASN 2020). The CKD-EPI equation should not be used for patients with unstable renal function and has not been validated in children and those over 70. Current interpretive data was last reviewed 2021. Blood 12/24/2024 5:27 AM CDT 12/24/2024 6:08 AM CDT Melisa Flor INFORMATION SECURITY CONSULTANT LAB BLOOD ORDERA BLES Final Result [facility] [address] [place] [address] * (ABNORMAL) Differential, auto (12/24/2024 5:27 AM CDT) Neutrophil abs 9.49(H) 1.50 - 6.50 K/cumm Imm gran abs 0.03 0.00 - 0.10 K/cumm [facility] Lymphocyte abs 1.03 0.80 - 3.30 K/cumm [facility] Monocyte abs 1.12(H) 0.20 - 0.80 K/cumm [facility] Eosinophil abs 0.01 0.00 - 0.50 K/cumm [facility] Basophil abs 0.03 0.00 - 0.10 K/cumm [facility] Neutrophil pct 80.9 % [facility] Comment: Interpretive Data Percent cell count reference ranges are not reported, since discordance with absolute values may lead to misinterpretation of CBC data. Current Interpretive Data was last revised on 2017. Imm gran pct 0.3 % [facility] Comment: Interpretive Data Percent cell count reference ranges are not reported, since discordance with absolute values may lead to misinterpretation of CBC data. Current Interpretive Data was last revised on 2017. Lymphocyte pct 8.8 % [facility] Comment: Interpretive Data Percent cell count reference ranges are not reported, since discordance with absolute values may lead to misinterpretation of CBC data. Current Interpretive Data was last revised on 2017. Monocyte pct 9.6 % [facility] Comment: Interpretive Data Percent cell count reference ranges are not reported, since discordance with absolute values may lead to misinterpretation of CBC data. Current Interpretive Data was last revised on 2017. Eosinophil pct 0.1 % [facility] Comment: Interpretive Data Percent cell count reference ranges are not reported, since discordance with absolute values may lead to misinterpretation of CBC data. Current Interpretive Data was last revised on 2017. Basophil pct 0.3 % [facility] Comment: Interpretive Data Percent cell count reference ranges are not reported, since discordance with absolute values may lead to misinterpretation of CBC data. Current Interpretive Data was last revised on 2017. Blood 12/24/2024 5:27 AM CDT 12/24/2024 6:08 AM CDT Melisa Flor INFORMATION SECURITY CONSULTANT LAB BLOOD ORDERA BLES Final Result [facility] [address] Department [place] [address] * (ABNORMAL) CBC with auto differential (12/24/2024 5:27 AM CDT) WBC 11.71(H) 3.80 - 9.90 K/cumm Hgb 14.2 13.0 - 17.5 g/dL [facility] Hct 42.5 38.9 - 50.3 % [facility] Plt 122(L) 150 - 400 K/cumm [facility] MPV 12.5(H) 9.1 - 12.3 fL [facility] RBC 4.22(L) 4.30 - 5.80 M/cumm [facility] MCV 100.7(H) 81.3 - 96.4 fL [facility] MCH 33.6(H) 27.1 - 33.3 pg [facility] MCHC 33.4 32.3 - 35.7 g/dL [facility] RDW CV 11.6 11.1 - 14.9 % [facility] RDW SD 42.9 35.7 - 48.1 fL [facility] NRBC abs 0.00 0.00 - 0.01 K/cumm [facility] Blood 12/24/2024 5:27 AM CDT 12/24/2024 6:08 AM CDT Melisa Flor INFORMATION SECURITY CONSULTANT LAB BLOOD ORDERA BLES Final Result [facility] [address] Department [place] [address] * (ABNORMAL) Comprehensive metabolic panel (12/24/2024 5:27 AM CDT) [facility] Sodium 139 135 - 145 mmol/L Potassium, pl 4.3 3.3 - 4.9 mmol/L [facility] Chloride 103 97 - 110 mmol/L [facility] CO2 24 22 - 32 mmol/L [facility] Anion gap 12 2 - 15 mmol/L [facility] BUN 10 6 - 25 mg/dL [facility] Creatinine 0.71(L) 0.80 - 1.30 mg/dL [facility] Glucose 96 70 - 199 mg/dL [facility] Comment: Interpretive Data Fasting glucose >/= 126 mg/dl is diagnostic for diabetes. Fasting is defined as no caloric intake for at least 8 hours. Fasting glucose between 100 mg/dl to 125 mg/dl is diagnostic of prediabetes. In a patient with classic symptoms of hyperglycemia or hyperglycemic crisis, a random glucose >/= 200 mg/dl is diagnostic for diabetes. In the absence of unequivocal hyperglycemia, results should be confirmed by repeat testing. The classification and Diagnosis of Diabetes Diabetes Care 202; 46: S19-S40. Current interpretive data was last revised 2022. Calcium 9.3 8.5 - 10.3 mg/dL [facility] Bilirubin, total 0.7 0.1 - 1.2 mg/dL [facility] Protein, pl 6.4(L) 6.5 - 8.5 g/dL [facility] Albumin 4.0 3.5 - 5.0 g/dL [facility] Alk phos 47 40 - 130 Units/L [facility] ALT 11 7 - 55 Units/L [facility] AST 15 10 - 50 Units/L [facility] Blood 12/24/2024 5:27 AM CDT 12/24/2024 6:08 AM CDT us Melisa Flor INFORMATION SECURITY CONSULTANT LAB BLOOD ORDERA BLES Final Result [facility] [address] Department [place] [address] * KS AN ELECTIVE ENDOTRACHEAL AIRWAY, KS AN PROCEDURE PLACEHOLDER (12/23/2024 1:58 PM CDT) Narrative Marlin Harding CRNA - 12/23/2024 1:58 PM CDT Marlin Harding CRNA 12/23/2024 1:59 PM Airway Patient location: OR (GI) Urgency: elective Date/time: 12/23/2024 1:45 PM Indications for airway management: anesthesia Difficult airway: no Staff: Supervising provider: Vishnu Weber MD Placed by: REPROGRAPHICS TECHNICIAN: Marlin Harding CRNA Emergent airway documentation: Risks and benefits discussed: yes Consent obtained: yes Consent given by: patient Airway prep: Preoxygenated: yes Patient position: sniffing Mask difficulty assessment: 1 - vent by mask Spontaneous ventilation during airway: absent Sedation level during airway: GA Final airway details: Final airway type: endotracheal airway Tube type: ETT ETT size: 8.0 mm Cuffed: yes Technique used for successful ETT placement: video laryngoscopy Devices/Methods used in placement: stylet Insertion site: oral Blade type: Nazanin Video blade type: Beltran Blade size: 4 Cormack-Lehane (video): grade IIa - partial view of glottis Cuff volume: 8 mL Cuff inflated with: air ETT to lips: 24 cm Placement verified by: auscultation and CO2 detection Airway secured with: silk tape Number of attempts: 1 us Vishnu Weber MD ANESTHESIA ORDERABLES Final Resu lt * Peroral Endoscopic Myotomy (POEM) (12/23/2024 1:19 PM CDT) Anatomical Region Laterality Modality Other Narrative Procedure Note Robel Graves MD - 12/23/2024 1:19 PM CDT ENDOSCOPY LAB Patient Name: Tate Kim Procedure Date: 12/23/2024 1:19 PM Admit Type: Outpatient Room: [facility] 4 Date of : 1955 Instrument Name: [id number] Gender: Male Note Status: Finalized Procedure: Peroral Endoscopic Myotomy (POEM) Indications: For therapy of achalasia Comorbidities See the other procedure note for documentation of comorbidities Providers: Robel Graves M.D. Referring MD: Gunnar Miguel M.D. Medicines: General Anesthesia, Cipro 400 mg IV Complications: No immediate complications. Estimated Blood Loss: Estimated blood loss was minimal. Procedure: Pre-Anesthesia Assessment: - Prior to the procedure, a History and Physicalwas performed, and patient medications, allergies and sensitivities were reviewed. The patient'stolerance of previous anesthesia was reviewed. - Immediately prior to administration ofmedications, the patient was re-assessed for adequacy to receive sedatives. The endoscopic myotomy was accomplished without difficulty. The patient tolerated the procedurewell. Findings: The lumen of the middle third of the esophagus and lower third of the esophagus were mildly dilated with retained contents that were immediately suctioned. Hypertonic and puckered lower esophageal sphincter was noted at 52 cm from the incisors with moderateresistance with endoscope advancement. Pre-POEM FLIP (performed 11/21/2024: With the patient in the left lateral decubitus position, a 16 cm long3 mm diameter functional lumen imaging probe (FLIP), with avolume-based barostat bag, was placed at the lower esophageal sphincter using endoscopic visualization for the pre-intervention evaluation of achalasia. Diagnostic Measurements #1: Saline was infused into thebag to a volume of 60 mL. The observed distensibility at that volume was less than 0.5 mm2/mmHg with a minimum diameter of 4 mm. FLIPTopography was performed using stepwise distensions and demonstrated diminished contractility. The catheter was deflated and withdrawn. POEM: Preparations were made for peroral endoscopic myotomy (POEM).Mucosotomy followed by myotomy were performed in an anterior orientation. First,a submucosal injection of a solution of methylene blue and saline wasused to lift the mucosa at the site of the initial mucosotomy. The initial mucosal incision was made longitudinally starting at 46 cm from the incisors using a HybridKnife T-Type. Next, the endoscope with a clear cap was used to enter into the submucosal tunnel. The submucosaltunnel was then further created by continued dissection. The submucosaltunnel was extended to 54 cm from the incisors which included extension into the cardia by 2 cm. The myotomy was started at 49 cm from theincisors using a HybridKnife T-Type to perform a circular myotomy (in ananterior orientation). The myotomy was extended to 53 cm from the incisorswhich included extension into the cardia by 1 cm. Intra procedure bleedingwas minimal. Cautery was used effectively for hemostasis. Hemostasis was successfully accomplished throughout the procedure. After completionof the myotomy, there was no evidence of bleeding noted on theinspection of the myotomy edges and submucosal tunnel. The myotomy wassuccessfully performed. Post-POEM FLIP: With the patient in the left lateral decubitus position, a 16 cm long3 mm diameter functional lumen imaging probe (FLIP), with avolume-based barostat bag, was placed at the lower esophageal sphincter using endoscopic visualization for the post-intervention evaluation of achalasia. Diagnostic Measurements #1: Saline was infused into thebag to a volume of 60 mL. The observed distensibility at the apparent sphincter was approximately 2.9 mm2/mmHg with a maximum observed diameter of 13.3 mm. This was consistent with adequate myotomy and treatment of achalasia. The bag was deflated and the catheter was withdrawn. The mucosal entrance to the submucosal tunnel was closed using 6 endoscopic clips. The entire examined stomach was normal. The examined duodenum was normal. Impression: - Endoscopic findings of achalasia successfully treated with short length peroral endoscopicmyotomy. Recommendation: - Monitor in recovery for 1 hour to makedetermination of admission for observation vs discharge home. - NPO for 2 hours then OK to advance to sips ofclears. - Full liquid diet starting tomorrow and for 14days. Then advance to pureed/soft diet for 14 days. - Pharmacy consultation if inpatient to assist with conversion of home medications to crushable orliquid (if on home meds). - Omeprazole 40mg twice daily orally for 8 weeks. - Continue holding Plavix for an additional 3days. - Clinic visit with me in 4 weeks. - Avoid positive pressure ventilation for 4weeks. - Avoid NG tube placement. - Avoid heavy lifting >20lbs for 4 weeks. - In the unusual situation that you developabdominal, bleeding or other significant problems in the days following this procedure please call [phone] ask for my nurse, Analilia Anaya. After hours and evenings please call [phone] and speak to theGI fellow refrigeration service technician. Please tell the fellow that Dr. Graves did your procedure and that you were instructed to have the fellow call me or thephysician covering for me to discuss the management of your condition. If you have an urgent problem, please goto the nearest emergency room and have the ER doctorcall my office during the day or [facility] transfer ([phone]) center after hours and weekends to arrange admission or transfer to our facility. Attending Participation: I personally performed the entire procedure. Electronically signed by Robel Graves MD Robel Graves M.D. 12/23/2024 2:47:17 PM This document was signed electronically. Number of Addenda: 0 Note Initiated On: 12/23/2024 1:19 PM Scope In: Scope Out: Robel Graves MD ENDOSCOPY PROCEDURES Edited Result - Final * SCAN - LABS (11/26/2024) us Provider Scanning Edited Result - Final * Surgical pathology (11/21/2024 7:56 AM CDT) Tissue (Gastric/Stomach biopsy) 11/21/2024 7:56 AM CDT Narrative PATHOLOGY [facility] - 11/22/2024 7:57 AM CDT [address] [address] Tele: Lilly Cervantes MD - Ironing Pleater Note to Patients: This report may contain [...] the details. SURGICAL PATHOLOGY REPORT Patient Name: TATE KIM Address: [address] [place] [address] Gender: M : 1955 (Age: 68) Service: Gastro Location: [facility], Hospital #: [id number] Patient Type: [facility] SAME DAY SURGERY Taken: 11/21/2024 Received 11/21/2024 Reported: 11/22/2024 Physician(s): Orion Lan Dr., M.D. DIAGNOSIS: Stomach-biopsy: - Minimal histologic change b/11/22/2024 07:57 Examining Pathologist: Tino Arce M.D. Report Reviewed and Electronically Signed By Tino Arce M.D. SPECIMEN TYPE: A: GASTRIC BIOPSIES CLINICAL IMPRESSION AND HISTORY: Suspected achalasia. Patchy mild inflammation was found in the gastric body and antrum. GROSS DESCRIPTION: Re[facility] and [facility] biopsies is a 0.2 x 0.2 x 0.2 cm king tissue fragment. The specimen is filtered and entirely submitted in A1. jxi/11/21/2024 14:01 SYEDA,AVANI MICROSCOPIC DESCRIPTION: Review of the part A [...] a superficial fashion. Clerical Data Follows A; 92459 REPORT IMAGES AND/OR SCANNED DOCUMENTS ONLY VIEWABLE IN PDF FORMAT The immunohistochemical test(s) cited in this report, if any, was developed and its performance characteristics determined by [facility]. It has not been cleared or approved by the U.S. Food and Drug Administration. The FDA has determined that such clearance or approval is not necessary. This test is used for clinical purposes. It should not be regarded as investigational or for research. [facility] is certified under the Clinical Laboratory [...] part or completely in the following laboratories: [facility], [facility], [address], [place] [address]. us Robel Graves MD LAB PATHOLOGY ORDERABLES Fi nal Result PATHOLOGY [facility] Laboratory Receiving [address] [place] [address] * EGD (11/21/2024 7:43 AM CDT) Anatomical Region Laterality Modality Other Narrative Procedure Note Robel Graves MD - 11/21/2024 7:43 AM CDT ENDOSCOPY LAB Patient Name: Tate Kim Procedure Date: 11/21/2024 7:43 AM Admit Type: Outpatient Room: [facility] Date of : 1955 Instrument Name: [...] the days following this procedure please call [phone] ask for my nurse, Analilia Anaay. After hours and evenings please call [phone] and speak to theGI fellow refrigeration service technician. Please tell the fellow that Dr. Graves did your procedure and that you were instructed to have the fellow call me or thephysician covering for me to discuss the management of your condition. If you have an urgent problem, please goto the nearest emergency room and have the ER doctorcall my office during the day or [facility] transfer ([phone]) center after hours and weekends to arrange [...] Result from Last 3 Months Insurance MEDICARE [facility] Address: [facility] [address] [place] [address] [facility] SENIOR SUPPLE[facility] MEDICARE AET[employer] SENIOR SUPPLEMENT Advance Directives For more information, please contact: [phone] * Full Code (Latest Code Status on File) Date Activated Date Inactivated Comments 12/23/2024 12:50 PM 12/24/2024 6:52 PM * Full Code Date Activated Date Inactivated Comments 11/21/2024 7:18 AM 11/21/2024 12:36 PM Care Teams Spot Washer Relationship Specialty Start Date End Date Gunnar Miguel MD [address] [place] [id number] PCP - General Internal Medicine 10/28/24
--- OUTSIDE RECORDS SUMMARY | 2024-12-26 13:44 | XMS_ITS | Referral Summary ---
Author Organization [facility] Address [address] [place] [address] Care Team Providers Care Director Of Psychiatry Name Role Phone Gunnar Miguel MD Primary Care Provider [phone] Encounters Date Type Department Care Team Description 12/25/2024 Orders Only [facility] Gastroenterology [address] [place] [address] Office Building [address], [address] [place] [phone] Analilia Anaya RN 12/25/2024 Telephone [facility] Gastroenterology [address] [facility] Office Building 4, [address] [place] [address] Analilia Anaya, JS returning pt call 12/23/2024 12:03 PM CDT - 12/24/2024 2:46 PM CDT Hospital Encounter [address] [address] Robel Graves MD Hart, MD Reyna Steele Bazgha Imtiaz, DO El Sawda, MD Melanie Rios (Primary Dx) Discharge Disposition: Discharge to home or self care 12/23/2024 1:36 PM CDT Anesthesia Event [facility] [address] [place] [phone] Vishnu Weber MD 12/23/2024 1:15 PM CDT - 12/23/2024 2:15 PM CDT Surgery [facility] [address] [place] [phone] Robel Graves MD TRANSORAL LWR ESOPH MYOTOMY [id number] 2024 Telephone [facility] Gastroenterology [address] [place] [address] Medical Office Building 4, [address] [place] [address] Analilia Anaya RN Scheduling Testing/Treatment ; GI Preprocedure; AC hold recs 12/12/2024 12:00 PM CDT Telemedicine [facility] Gastroenterology [address] [facility] 2nd Floor [address] [place] [address] Robel Graves MD Achalasia (Primary Dx) 11/26/2024 Orders Only [facility] Scanning, Provider 11/22/2024 Telephone [facility] G[facility]enterology [address] [place] [address] Medical Office Building 4, [address] [place] [phone] Analilia Anaya RN TM scheduling and labs 11/22/2024 Results Follow-Up [facility] Gastroenterology [address] [facility] 2nd Floor [address] [place] [phone] Robel Graves MD Surgical pathology 11/21/2024 7:51 AM CDT Anesthesia Event [facility] [address] [place] [phone] Dano Monae MD 11/21/2024 8:00 AM CDT - 11/21/2024 8:30 AM CDT Surgery [facility] [address] [place] [phone] Robel Graves MD ESOPHAGEAL BALLOON DISTENTION STUDY DIAGNOSTIC WITH PROVOCATION 11/21/2024 7:02 AM CDT - 11/21/2024 8:35 AM CDT Hospital Encounter [facility] [address] [place] [phone] Rengarajan, Robel, MD Achalasia Discharge Disposition: Discharge to home or self care 10/31/2024 Telephone [facility] Gastroenterology [address] [facility] Medical Office Building 4, [address] [place] [address] Analilia Anaya RN GI Preprocedure; Scheduling Testing/Treatment ; AC hold recs from Last 3 Months Allergies No known active allergies Medications rosuvastatin [...] a spoon of applesauce 60 capsule 1 12/26/19 25 025 Active clopidogreL (PLAVIX) 75 mg tablet Take 1 tablet (75 mg total) by mouth daily [address] (PROTONIX) 40 mg EC tabletIndicati ons:Treatment of Non-Bleeding Gastric Disorder Take 1 tablet (40 mg total) by mouth 2 (two) times a day 60 tablet 11 12/25/[address] (PROTONIX) 40 mg EC tabletIndicati ons:Treatment of Non-Bleeding Gastric Disorder Take 1 tablet (40 mg total) by mouth 2 (two) times a day 60 tablet 1 12/25/19 25 025 Discontinued(Al ternate therapy) Active Problems Problem Noted Date Diagnosed Date Moderate protein-calorie malnutrition 12/24/2024 Coronary artery disease invo lving [place] coronary artery of [place] heart without angina pectoris 12/23/2024 Assessment & Plan (12/23/2024 4:21 PM CDT): -CAD s/p stenting of RCA 2016 and dyslipidemia. 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 Gender Identity Not on file Sexual Orientation [...] 12/23/2024 12:51 PM CDT Plan of Treatment Not on file Procedures Procedure Name Priority Date/Time Associated Diagnosis Comments EGFR Routine 12/24/2024 5:27 AM CDT DIFFERENTIAL AUTO Routine 12/24/2024 5:27 AM CDT CBC WITH AUTO DIFFERENTIAL Routine 12/24 5:27 AM CDT COMPREHENSIVE METABOLIC PANEL Routine 5:27 AM CDT [place] AN PROCEDURE PLACEHOLDER Routine 11/27 1:58 PM CDT [place] AN ELECTIVE ENDOTRACHEAL AIRWAY Routine 12/23/2024 1:58 PM CDT ESOPHAGEAL BALLOON DISTENSIO N STUDY DIAGNOSTIC WITH PROVOCATION 12/23/2024 1:37 PM CDT Achalasia Special Needs 23 hr obs, inpt pharm consult TRANSORAL LWR ESOPH MYOTOMY [address] 12/23/2024 1:37 PM CDT Achalasia Special Needs [...] CDT 12/24/2024 6:08 AM CDT Melisa Flor NP LAB BLOOD ORDERA BLES Final Result [facility] [address] Department [place] [address] * (ABNORMAL) Differential, auto (12/24/2024 5:27 AM CDT) Neutrophil abs 9.49(H) 1.50 - 6.50 K/cumm Imm gran abs 0.03 0.00 - 0.10 K/cumm [facility] Lymphocyte abs 1.03 0.80 - 3.30 K/cumm [facility] Monocyte abs 1.12(H) 0.20 - 0.80 K/cumm [facility] Eosinophil abs 0.01 0.00 - 0.50 K/cumm [facility] Basophil abs 0.03 0.00 - 0.10 K/cumm [facility] Neutrophil pct 80.9 % [facility] Comment: Interpretive Data Percent cell count reference ranges are not reported, since discordance with absolute values may lead to misinterpretation of CBC data. Current Interpretive Data was last revised on 2017. Imm gran pct 0.3 % [facility] Comment: Interpretive Data Percent cell count reference ranges are not reported, since discordance with absolute values may lead to misinterpretation of CBC data. Current Interpretive Data was last revised on 2017. Lymphocyte pct 8.8 % [facility] Comment: Interpretive Data Percent cell count reference ranges are not reported, since discordance with absolute values may lead to misinterpretation of CBC data. Current Interpretive Data was last revised on 2017. Monocyte pct 9.6 % [facility] Comment: Interpretive Data Percent cell count reference ranges are not reported, since discordance with absolute values may lead to misinterpretation of CBC data. Current Interpretive Data was last revised on 2017. Eosinophil pct 0.1 % [facility] Comment: Interpretive Data Percent cell count reference ranges are not reported, since discordance with absolute values may lead to misinterpretation of CBC data. Current Interpretive Data was last revised on 2017. Basophil pct 0.3 % [facility] Comment: Interpretive Data Percent cell count reference ranges are not reported, since discordance with absolute values may lead to misinterpretation of CBC data. Current Interpretive Data was last revised on 2017. Blood 12/24/2024 5:27 AM CDT 12/24/2024 6:08 AM CDT Melisa Flor NP LAB BLOOD ORDERA BLES Final Result [facility] [address] Department [place] [address] * (ABNORMAL) CBC with auto differential (12/24/2024 5:27 AM CDT) [facility] WBC 11.71(H) 3.80 - 9.90 K/cumm Hgb 14.2 13.0 - 17.5 g/dL [facility] Hct 42.5 38.9 - 50.3 % [facility] Plt 122(L) 150 - 400 K/cumm [facility] MPV 12.5(H) 9.1 - 12.3 fL [facility] RBC 4.22(L) 4.30 - 5.80 M/cumm [facility] MCV 100.7(H) 81.3 - 96.4 fL [facility] MCH 33.6(H) 27.1 - 33.3 pg [facility] MCHC 33.4 32.3 - 35.7 g/dL [facility] RDW CV 11.6 11.1 - 14.9 % [facility] RDW SD 42.9 35.7 - 48.1 fL [facility] NRBC abs 0.00 0.00 - 0.01 K/cumm [facility] Blood 12/24/2024 5:27 AM CDT 12/24/2024 6:08 AM CDT Melisa Flor NP LAB BLOOD ORDERA BLES Final Result [facility] [address] Department of Laboratories [place], [place] [id number] * (ABNORMAL) Comprehensive metabolic panel (12/24/2024 5:27 AM CDT) [facility] Sodium 139 135 - 145 mmol/L Potassium, pl 4.3 3.3 - 4.9 mmol/L [facility] Chloride 103 97 - 110 mmol/L [facility] CO2 24 22 - 32 mmol/L [facility] Anion gap 12 2 - 15 mmol/L [facility] BUN 10 6 - 25 mg/dL [facility] Creatinine 0.71(L) 0.80 - 1.30 mg/dL [facility] Glucose 96 70 - 199 mg/dL [facility] Comment: Interpretive Data Fasting glucose [...] 2022. Calcium 9.3 8.5 - 10.3 mg/dL [facility] Bilirubin, total 0.7 0.1 - 1.2 mg/dL [facility] Protein, pl 6.4(L) 6.5 - 8.5 g/dL [facility] Albumin 4.0 3.5 - 5.0 g/dL [facility] Alk phos 47 40 - 130 Units/L [facility] ALT 11 7 - 55 Units/L [facility] AST 15 10 - 50 Units/L [facility] Blood 12/24/2024 5:27 AM CDT 12/24/2024 6:08 AM CDT Melisa Flor MERCERIZER MACHINE OPERATOR LAB BLOOD ORDERA BLES Final Result [facility] [address] Department [place] [address] * [place] AN ELECTIVE ENDOTRACHEAL AIRWAY, [place] AN PROCEDURE PLACEHOLDER (12/23/2024 1:58 PM CDT) Narrative Marlin Harding CRNA - 12/23/2024 1:58 PM CDT Marlin Harding CRNA 12/23/2024 1:59 PM Airway Patient location: OR (GI) Urgency: elective Date/time: 12/23/2024 1:45 PM Indications for airway management: anesthesia Difficult airway: no Staff: Supervising provider: Vishnu Weber MD Placed by: CHANNEL SPECIALIST: Marlin Harding CRNA Emergent airway documentation: Risks [...] 12/23/2024 1:19 PM Admit Type: Outpatient Room: [facility] 4 Date of : 1955 Instrument Name: [id number] Gender: Male Note Status: Finalized Procedure: Peroral Endoscopic Myotomy (POEM) Indications: For therapy of achalasia Comorbidities See the other procedure note for documentation of comorbidities Providers: Robel Garves M.D. Referring MD: Gunnar Miguel M.D. Medicines: [...] the days following this procedure please call [phone] ask for my nurse, Analilia Anaya. After hours and evenings please call [phone] and speak to theGI fellow patient relations representative. Please tell the fellow that Dr. Graves did your procedure and that you were instructed to have the fellow call me or thephysician covering for me to discuss the management of your condition. If you have an urgent problem, please goto the nearest emergency room and have the ER doctorcall my office during the day or [facility] transfer ([phone]) center after hours and weekends to arrange [...] biopsy) 11/21/2024 7:56 AM CDT Narrative PATHOLOGY [facility] - 11/22/2024 7:57 AM CDT [place] [address] [facility], [place], [place] [address] Tele: Lilly Cervantes MD - Director Gift Note to Patients: This report may contain [...] PATHOLOGY REPORT Patient Name: TATE KIM Address: [address] [place] [address] Gender: M : 1955 (Age: 68) Service: Gastro Location: [facility], Hospital #: [id number] Patient Type: [facility] Taken: 11/21/2024 Received 11/21/2024 [...] antrum. GROSS DESCRIPTION: Received in formalin labeled TATE KIM and gastric biopsies is a 0.2 x 0.2 x 0.2 cm king tissue fragment. The specimen is filtered and entirely submitted in A1. jxi/11/21/2024 14:01 AVANI LANDA MICROSCOPIC DESCRIPTION: Review of the part A [...] a superficial fashion. Clerical Data Follows A; 54494 REPORT IMAGES AND/OR SCANNED DOCUMENTS ONLY VIEWABLE IN PDF FORMAT The immunohistochemical test(s) cited in this report, if any, was developed and its performance characteristics determined by [facility] Department. It has not been cleared or approved by the U.S. Food and Drug Administration. The FDA has determined that such clearance or approval is not necessary. This test is used for clinical purposes. It should not be regarded as investigational or for research. [facility] is certified under the Clinical [...] part or completely in the following laboratories: [facility], [address] [place] [address], [address] [place] [address]. Robel Graves MD LAB PATHOLOGY ORDERABLES [facility] Result PATHOLOGY [facility] Laboratory Receiving [address] [place] [address] * EGD (11/21/2024 7:43 AM CDT) Anatomical Region Laterality Modality Other Narrative Procedure Note Robel Graves MD - 11/21/2024 7:43 AM CDT ENDOSCOPY LAB Patient Name: Tate Kim Procedure Date: 11/21/2024 7:43 AM Admit Type: Outpatient Room: [facility] Date of : 1955 Instrument Name: [...] the days following this procedure please call [phone] ask for my nurse, Analilia Anaya. After hours and evenings please call [phone] and speak to theGI fellow patient relations representative. Please tell the fellow that Dr. Graves did your procedure and that you were instructed to have the fellow call me or thephysician covering for me to discuss the management of your condition. If you have an urgent problem, please goto the nearest emergency room and have the ER doctorcall my office during the day or [facility] transfer ([phone]) center after hours and weekends to arrange [...] Final Result from Last 3 Months Insurance T SENIOR SUPPLEMENT MEDICARE [place] SENIOR SUPPLEMENT Advance Directives For more information, please contact: [phone] * Full Code (Latest Code Status on File) Date Activated Date Inactivated Comments 12/23/2024 12:50 PM 12/24/2024 6:52 PM * Full Code Date Activated Date Inactivated Comments 11/21/2024 7:18 AM 11/21/2024 12:36 PM Care Teams Director Of Psychiatry Relationship Specialty Start Date End Date Gunnar Miguel MD [address] [place] [address] PCP - General Internal Medicine 10/28/24
--- OUTSIDE RECORDS SUMMARY | 2024-12-26 13:44 | XMS_ITS | Clinical Summary ---
Author Organization [facility] Address [address] [place] [address] Care Team Providers Care Show Host/Hostess Name Role Phone Gunnar Miguel MD Primary Care Provider [phone] Allergies No known active allergies Medications clopidogrel (PLAVIX) 75 MG tablet Take 1 tablet (75 mg total) by mouth daily. Active rosuvastatin (CRESTOR) 20 MG tablet Take 1 tablet (20 mg total) by mouth nightly at bedtime. Active omeprazole (PRILOSEC) 40 MG capsule Take 1 capsule (40 mg total) by mouth daily. Active Active Problems Problem Noted Date Diagnosed Date Achalasia 10/31/2024 Aspiration pneumonia ([facility]) Esophageal dysphagia 05/17/2024 Weight loss 05/17/2024 Encounters Date Type Department Care Team Description 10/31/2024 Scan [facility] Scanned, [facility] 10/31/2024 Travel 10/31/2024 Telephone [facility] [address], [address] [place] [address] Onel Aguiar MD Prior Authorization ([id number]); Called To Cancel Office Appt. 10/31/2024 Orders Only [address] [place] [address] Onel Aguiar MD 10/29/2024 Telephone [place] [address] [facility] [address] [place] [address] Onel Aguiar MD Referral from Last 3 Months Social History Tobacco Use Types Packs/Day Years Used Date Smoking Tobacco: Never Smokeless Tobacco: Never Tobacco Cessation:Counseling Given: No Alcohol Use Standard Drinks/Week Comments Yes 8.3 (1 standard drink = 0.6 oz p ure alcohol) twice a week [facility] Utilities Answer Date Recorded In the past 12 months has e [employer] oil, or water [employer] threatened to shut off services in your [...] any time in the past 12 m [facility], were you homeless or living in a long term (including now)? 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 Gender Identity Not on file Sexual Orientation Not on file Last Filed Vital Signs Vital Sign Reading Time Taken Comments Blood Pressure 120/70 06/14/2024 3:02 PM CONTINUOUS LINTER DRIER OPERATOR Pulse 60 06/14/2024 3:02 PM CONTINUOUS LINTER DRIER OPERATOR Temperature 36.9 C (98.4 F) 06/14/2024 3:02 PM CONTINUOUS LINTER DRIER OPERATOR Respiratory Rate 18 06/14/2024 3:02 PM CONTINUOUS LINTER DRIER OPERATOR Oxygen Saturation 97% 06/14/2024 3:02 PM CONTINUOUS LINTER DRIER OPERATOR Inhaled Oxygen Concentration - - Weight 88.5 [...] Zoster Vaccines Completed 09/29/2023, 07/18/2023 PHQ-2 (Physician [place]) Completed 06/14/2024 Meningococcal B Vaccine Aged Out [...] Lifestyle No Suma Gagnon, RN Insurance MEDICARE AET Advance Directives * Full Code (Latest Code Status on File) Date Activated Date Inactivated Comments 05/18/2024 12:44 AM 05/25/2024 3:58 PM Care Teams Show Host/Hostess Relationship Specialty Start Date End Date Gunnar Miguel MD [address] [place] [address] [address] [place] [address] PCP - General INTERNAL MEDICINE 05/17/24
--- NOTE | 2024-12-26 14:07 | ED_ITS ---
HPI - General Adult General Chief complaint: Unspecified Stated complaint: impacted Time Seen by Provider: 12/26/24 13:49 Source: patient and family Mode of arrival: ambulatory History of Present Illness HPI narrative: 69 years old white male status post myotomy 6 days ago, has been on clear liquid diet, unable to have a bowel movement since. Patient been digging himself out for a while with a little success. He denies any nausea or vomiting or abdominal pain. Related Data Allergies Allergy/AdvReac Type Severity Reaction Status Date / Time No Known Allergies Allergy Verified 12/26/24 13:50 Review of Systems Review of Systems: All systems reviewed & are unremarkable except as noted in HPI and below Exam Narrative: General appearance: Well-developed, well-nourished Skin: Normal color Head: Normocephalic, nontraumatic Chest and respiratory: Airway patent, no respiratory distress, no accessory muscle use Heart: Regular rate/rhythm Abdomen: Soft, nontender, no organomegaly, quiet bowel sounds Rectal exam showing fecal impaction Musculoskeletal: Normal range of motion, nontender back Neurologic: Alert and oriented ?3, BOOK CLEANER is normal as tested, no gross motor deficit Course Vital Signs Vital signs: Vital Signs Temperature 36.6 C 12/26/24 13:44 Pulse Rate 78 12/26/24 13:44 Respiratory Rate 18 12/26/24 13:44 Blood Pressure 123/87 12/26/24 13:44 Pulse Oximetry 98 12/26/24 13:44 Oxygen Delivery Room Air 12/26/24 13:44 Temperature 36.6 C 12/26/24 13:44 Pulse Rate 78 12/26/24 13:44 Respiratory Rate 18 12/26/24 13:44 Blood Pressure 123/87 12/26/24 13:44 Pulse Oximetry 98 12/26/24 13:44 Oxygen Delivery Room Air 12/26/24 13:44 Procedures Rectal Disimpaction Rectal Disimpaction #1: Rectal Disimpaction Date: 12/26/24 Rectal Disimpaction Time: 14:14 Time out performed rectal disimpaction: Yes (15) Indication: fecal impaction Procedural Sedation: No Sedation/Analgesia: none Technique: manual disimpaction with gloved finger Result: significant stool output Patient Tolerated Procedure: well Complications: none Medical Decision Making Vital Signs Vital Signs: Vital Signs Temperature 36.6 C 12/26/24 13:44 Pulse Rate 78 07/31/25 13:44 Respiratory Rate 18 12/26/24 13:44 Blood Pressure 123/87 12/26/24 13:44 Pulse Oximetry 98 12/26/24 13:44 Oxygen Delivery Room Air 12/26/24 13:44 Temperature 36.6 C 12/26/24 13:44 Pulse Rate 78 12/26/24 13:44 Respiratory Rate 18 12/26/24 13:44 Blood Pressure 123/87 12/26/24 13:44 Pulse Oximetry 98 12/26/24 13:44 Oxygen Delivery Room Air 12/26/24 13:44 Discharge Plan Discharge Clinical Impression: Fecal impaction in rectum Patient Disposition: Home Condition: Stable Instructions: Fecal Impaction (ED) Additional Instructions: Return if symptoms are worsening , call your family physician for appointment, take Tylenol as as needed for aches and pain, continue home medications. MiraLax 1 pack every 2 hours as needed up to 6 times a day Heating pad and abdomen Keep physically active Encourage fluid intake Patient Language: [place] Prescriptions: New bisacodyl [Dulcolax (bisacodyl)] 10 mg suppository 10 mg RECTAL TID PRN (Reason: constipation) Qty: 12 0RF Follow-up/Referrals: UNKNOWN,DOCTOR [Primary Care Provider] -
--- OUTSIDE RECORDS SUMMARY | 2024-12-26 14:23 | XMS_ITS | Encounter Summary ---
Author Organization [facility] Address [address] [place] [address] Phone Care Team Providers Care Accounts Payable Payroll Coordinator Name Role Phone Gunnar Miguel MD Primary Care Provider [phone] Reason for Visit * Reason Onset Date Comments Test Results 11/22/2024 Encounter Details Date Type Department Care Team (Late st Contact Info) Description 11/22/2024 Results Follow-Up [facility] Gastroenterology [address] [facility] 2nd Floor [address] [place] [address] Robel Graves MD [address] [place] [address] Surgical pathology Social History Tobacco Use Types [...] on file 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
--- OUTSIDE RECORDS SUMMARY | 2024-12-26 14:23 | XMS_ITS | Clinical Summary ---
Author Organization [facility] Address [address] [place] [address] Care Team Providers Care Cartography Supervisor Name Role Phone Gunnar Miguel MD Primary Care Provider [phone] Allergies No known active allergies Medications clopidogrel [...] Date Diagnosed Date Achalasia 10/31/2024 Aspiration pneumonia ([facility]) Esophageal dysphagia 05/17/2024 Weight loss 05/17/2024 Encounters Date Type Department Care Team Description 10/31/2024 Scan [facility] Scanned, Doc [facility] 10/31/2024 Travel 10/31/2024 [facility] [address], [address] [place] [address] Onel Aguiar MD Prior Authorization ([id number]); Called To Cancel Office Appt. 10/31/2024 Orders Only [address] [place] [address] Onel Aguiar MD 10/29/2024 Telephone [place] [address] [facility] [address] [place] [address] Onel Aguiar MD Referral from Last 3 Months Social History Tobacco Use Types Packs/Day Years Used Date Smoking Tobacco: Never Smokeless Tobacco: Never Tobacco Cessation:Counseling Given: No Alcohol Use Standard Drinks/Week Comments Yes 8.3 (1 standard drink = 0.6 oz p ure alcohol) twice a week [place] Utilities Answer Date Recorded In the past 12 months has e [facility], [employer], oil, or water [employer] threatened to shut off services in your [...] any time in the past 12 m [facility], were you homeless or living in a chcf (including now)? No 05/18/2024 Sex and Gender Information Value Date Recorded Sex Assigned at Not on file Legal Sex Male 2:17 PM FOOD STYLIST Gender Identity Not on file Sexual Orientation Not on file Last Filed Vital Signs Vital Sign Reading Time Taken Comments Blood Pressure 120/70 06/14/2024 3:02 PM FOOD STYLIST Pulse 60 06/14/2024 3:02 PM FOOD STYLIST Temperature 36.9 C (98.4 F) 06/14/2024 3:02 PM FOOD STYLIST Respiratory Rate 18 06/14/2024 3:02 PM FOOD STYLIST Oxygen Saturation 97% 06/14/2024 3:02 PM FOOD STYLIST Inhaled Oxygen Concentration - - Weight 88.5 [...] Zoster Vaccines Completed 09/29/2023, 07/18/2023 PHQ-2 (Physician [place]) Completed 06/14/2024 Meningococcal B Vaccine Aged Out [...] 12:44 AM 05/25/2024 3:58 PM Care Teams Cartography Supervisor Relationship Specialty Start Date End Date Gunnar Miguel MD [address] [place] [address] [address] [place] [address] PCP - General INTERNAL MEDICINE 05/17/24
--- OUTSIDE RECORDS SUMMARY | 2024-12-26 14:23 | XMS_ITS | Referral Summary ---
Author Organization [facility] Address [address] [place] [phone] Care Team Providers Care International Flight Attendant Name Role Phone Gunnar Miguel MD Primary Care Provider [phone] Encounters Date Type Department Care Team Description 12/25/2024 Orders Only [facility] Gastroenterology [address] [place] [address] Office Building [address], [address] [place] [phone] Analilia Anaya RN 12/25/2024 Telephone [facility] Gastroenterology [address] [facility] Office Building [address], [address] [place] [address] Analilia Anaya, JS returning pt call 12/23/2024 12:03 PM CDT - 12/24/2024 2:46 PM CDT Hospital Encounter [address] [address] Robel Graves MD Hart, MD Reyna Steele Bazgha Imtiaz, DO El Sawda, MD Melanie Rios (Primary Dx) Discharge Disposition: Discharge to home or self care 12/23/2024 1:36 PM CDT Anesthesia Event [facility] [address] [place] [phone] Vishnu Weber MD 12/23/2024 1:15 PM CDT - 12/23/2024 2:15 PM CDT Surgery [facility] [address] [place] [phone] Robel Graves MD TRANSORAL LWR ESOPH MYOTOMY [id number] 2024 Telephone [facility] Gastroenterology [address] [place] [address] Medical Office Building [address], [address] [place] [address] Analilia Anaya RN Scheduling Testing/Treatment ; GI Preprocedure; AC hold recs 12/12/2024 12:00 PM CDT Telemedicine [facility] Gastroenterology [address] [facility] 2nd Floor [address] [place] [address] Robel Graves MD Achalasia (Primary Dx) 11/26/2024 Orders Only [facility] Scanning, Provider 11/22/2024 Telephone [facility] Gastroenterology [address] [place] [address] Medical Office Building [address], [address] [place] [phone] Analilia Anaya RN TM scheduling and labs 11/22/2024 Results Follow-Up [facility] Gastroenterology [address] [facility] 2nd Floor [address] [place] [phone] Robel Graves MD Surgical pathology 11/21/2024 7:51 AM CDT Anesthesia Event [facility] [address] [place] [phone] Dano Monae MD 11/21/2024 8:00 AM CDT - 11/21/2024 8:30 AM CDT Surgery [facility] [address] [place] [phone] Robel Graves MD ESOPHAGEAL BALLOON DISTENTION STUDY DIAGNOSTIC WITH PROVOCATION 11/21/2024 7:02 AM CDT - 11/21/2024 8:35 AM CDT Hospital Encounter [facility] [address] [place] [phone] Rengarajan, Robel, MD Achalasia Discharge Disposition: Discharge to home or self care 10/31/2024 Telephone [facility] Gastroenterology [address] [facility] Medical Office Building 4, [address] [place] [address] Analilia Anaya RN GI Preprocedure; [...] malnutrition 12/24/2024 Coronary artery disease invo lving g[place] coronary artery of [place] heart without angina pectoris 12/23/2024 Assessment & [...] on file 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 Gender Identity Not on file Sexual [...] COMPREHENSIVE METABOLIC PANEL Routine 5:27 AM CDT FL AN PROCEDURE PLACEHOLDER Routine 11/27 1:58 PM CDT FL AN ELECTIVE ENDOTRACHEAL AIRWAY Routine 12/23/2024 1:58 PM CDT ESOPHAGEAL BALLOON DISTENSIO N STUDY DIAGNOSTIC WITH PROVOCATION 12/23/2024 1:37 PM CDT Achalasia Special Needs 23 hr obs, inpt pharm consult TRANSORAL LWR ESOPH MYOTOMY [id number] 12/23/2024 1:37 PM CDT Achalasia Special Needs [...] NP LAB BLOOD ORDERA BLES Final Result [facility] [address] Department [place] [address] * (ABNORMAL) Differential, auto (12/24/2024 5:27 AM CDT) Neutrophil abs 9.49(H) 1.50 - 6.50 K/cumm Imm gran abs 0.03 0.00 - 0.10 K/cumm [facility] Lymphocyte abs 1.03 0.80 - 3.30 K/cumm [facility] Monocyte abs 1.12(H) 0.20 - 0.80 K/cumm [facility] Eosinophil abs 0.01 0.00 - 0.50 K/cumm [facility] Basophil abs 0.03 0.00 - 0.10 K/cumm [facility] Neutrophil pct 80.9 % [facility] Comment: Interpretive Data Percent cell count reference ranges are not reported, since discordance with absolute values may lead to misinterpretation of CBC data. Current Interpretive Data was last revised on 2017. Imm gran pct 0.3 % [facility] Comment: Interpretive Data Percent cell count reference ranges are not reported, since discordance with absolute values may lead to misinterpretation of CBC data. Current Interpretive Data was last revised on 2017. Lymphocyte pct 8.8 % [facility] Comment: Interpretive Data Percent cell count reference ranges are not reported, since discordance with absolute values may lead to misinterpretation of CBC data. Current Interpretive Data was last revised on 2017. Monocyte pct 9.6 % [facility] Comment: Interpretive Data Percent cell count reference ranges are not reported, since discordance with absolute values may lead to misinterpretation of CBC data. Current Interpretive Data was last revised on 2017. Eosinophil pct 0.1 % [facility] Comment: Interpretive Data Percent cell count reference ranges are not reported, since discordance with absolute values may lead to misinterpretation of CBC data. Current Interpretive Data was last revised on 2017. Basophil pct 0.3 % [facility] Comment: Interpretive Data Percent cell count reference ranges are not reported, since discordance with absolute values may lead to misinterpretation of CBC data. Current Interpretive Data was last revised on 2017. Blood 12/24/2024 5:27 AM CDT 12/24/2024 6:08 AM CDT Melisa Flor NP LAB BLOOD ORDERA BLES Final Result [facility] [address] Department [place] [address] * (ABNORMAL) CBC with auto differential (12/24/2024 5:27 AM CDT) [facility] WBC 11.71(H) 3.80 - 9.90 K/cumm Hgb 14.2 13.0 - 17.5 g/dL [facility] Hct 42.5 38.9 - 50.3 % [facility] Plt 122(L) 150 - 400 K/cumm [facility] MPV 12.5(H) 9.1 - 12.3 fL [facility] RBC 4.22(L) 4.30 - 5.80 M/cumm [facility] MCV 100.7(H) 81.3 - 96.4 fL [facility] MCH 33.6(H) 27.1 - 33.3 pg [facility] MCHC 33.4 32.3 - 35.7 g/dL [facility] RDW CV 11.6 11.1 - 14.9 % [facility] RDW SD 42.9 35.7 - 48.1 fL [facility] NRBC abs 0.00 0.00 - 0.01 K/cumm [facility] Blood 12/24/2024 5:27 AM CDT 12/24/2024 6:08 AM CDT Melisa Flor NP LAB BLOOD ORDERA BLES Final Result [facility] [address] Department of Laboratories [place], [place] [id number] * (ABNORMAL) Comprehensive metabolic panel (12/24/2024 5:27 AM CDT) [facility] Sodium 139 135 - 145 mmol/L Potassium, pl 4.3 3.3 - 4.9 mmol/L [facility] Chloride 103 97 - 110 mmol/L [facility] CO2 24 22 - 32 mmol/L [facility] Anion gap 12 2 - 15 mmol/L [facility] BUN 10 6 - 25 mg/dL [facility] Creatinine 0.71(L) 0.80 - 1.30 mg/dL [facility] Glucose 96 70 - 199 mg/dL [facility] Comment: Interpretive Data Fasting glucose >/= [...] 2022. Calcium 9.3 8.5 - 10.3 mg/dL [facility] Bilirubin, total 0.7 0.1 - 1.2 mg/dL [facility] Protein, pl 6.4(L) 6.5 - 8.5 g/dL [facility] Albumin 4.0 3.5 - 5.0 g/dL [facility] Alk phos 47 40 - 130 Units/L [facility] ALT 11 7 - 55 Units/L [facility] AST 15 10 - 50 Units/L [facility] Blood 12/24/2024 5:27 AM CDT 12/24/2024 6:08 AM CDT Melisa Flor DRAPERY HAND LAB BLOOD ORDERA BLES Final Result [facility] [address] Department [place] [address] * FL AN ELECTIVE ENDOTRACHEAL AIRWAY, FL AN PROCEDURE PLACEHOLDER (12/23/2024 1:58 PM CDT) Narrative Marlin Harding CRNA - 12/23/2024 1:58 PM CDT Marlin Harding CRNA 12/23/2024 1:59 PM Airway Patient location: OR (GI) Urgency: elective Date/time: 12/23/2024 1:45 PM Indications for airway management: anesthesia Difficult airway: no Staff: Supervising provider: Vishnu Weber MD Placed by: JAWBONE PULLER: Marlin Harding CRNA Emergent airway documentation: Risks [...] 12/23/2024 1:19 PM Admit Type: Outpatient Room: [facility] [address] Date of : 1955 Instrument Name: [...] the days following this procedure please call [phone] ask for my nurse, Analilia Anaya. After hours and evenings please call [phone] and speak to theGI fellow electronic technician. Please tell the fellow that Dr. Graves did your procedure and that you were instructed to have the fellow call me or thephysician covering for me to discuss the management of your condition. If you have an urgent problem, please goto the nearest emergency room and have the ER doctorcall my office during the day or [facility] transfer ([phone]) center after hours and weekends to arrange [...] biopsy) 11/21/2024 7:56 AM CDT Narrative PATHOLOGY [facility] - 11/22/2024 7:57 AM CDT [place] [address] [facility], [place], [place] [address] Tele: Lilly Cervantes MD - Electronic Industrial Controls Mechanic Note to Patients: This report may contain [...] PATHOLOGY REPORT Patient Name: TATE KIM Address: [address] [place] [address] Gender: M : 1955 (Age: 68) Service: Gastro Location: [facility], Hospital #: [id number] Patient Type: [facility] SAME DAY SURGERY Taken: 11/21/2024 Received 11/21/2024 [...] a superficial fashion. Clerical Data Follows A; [id number] REPORT IMAGES AND/OR SCANNED DOCUMENTS ONLY VIEWABLE IN PDF FORMAT The immunohistochemical test(s) cited in this report, if any, was developed and its performance characteristics determined by [facility] Pathology Department. It has not been cleared or approved by the U.S. Food and Drug Administration. The FDA has determined that such clearance or approval is not necessary. This test is used for clinical purposes. It should not be regarded as investigational or for research. [facility] Laboratory is certified under the Clinical Laboratory [...] part or completely in the following laboratories: [facility], [address] [place] [address], [address] [place] [address]. Robel Graves MD LAB PATHOLOGY ORDERABLES [facility] Result PATHOLOGY [facility] Laboratory Receiving [address] [place] [address] * EGD (11/21/2024 7:43 AM CDT) Anatomical Region Laterality Modality Other Narrative Procedure Note Robel Graves MD - 11/21/2024 7:43 AM CDT ENDOSCOPY LAB Patient Name: Tate Kim Procedure Date: 11/21/2024 7:43 AM Admit Type: Outpatient Room: [facility] Date of : 1955 Instrument Name: [id number] [...] the days following this procedure please call [phone] ask for my nurse, Analilia Anaya. After hours and evenings please call [phone] and speak to theGI fellow electronic technician. Please tell the fellow that Dr. Graves did your procedure and that you were instructed to have the fellow call me or thephysician covering for me to discuss the management of your condition. If you have an urgent problem, please goto the nearest emergency room and have the ER doctorcall my office during the day or [facility] transfer ([phone]) center after hours and weekends to arrange [...] Advance Directives For more information, please contact: [phone] * Full Code (Latest Code Status on File) Date Activated Date Inactivated Comments 12/23/2024 12:50 PM 12/24/2024 6:52 PM * Full Code Date Activated Date Inactivated Comments 11/21/2024 7:18 AM 11/21/2024 12:36 PM Care Teams International Flight Attendant Relationship Specialty Start Date End Date Gunnar Miguel MD [address] [place] [address] PCP - General Internal Medicine 10/28/24
--- OUTSIDE RECORDS SUMMARY | 2024-12-26 14:23 | XMS_ITS | Clinical Summary ---
Author Organization [facility] Address [address] [place] [address] Care Team Providers Care Tissue Specialist Name Role Phone Gunnar Miguel MD Primary Care Provider + [phone] Allergies No known active allergies Medications rosuvastatin [...] malnutrition 12/24/2024 Coronary artery disease invo lving [place] coronary artery of [place] heart without angina pectoris 12/23/2024 Assessment & [...] Department Care Team Description 12/25/2024 Orders Only [facility] Gastroenterology [address] [place] [address] [address] [place] [address] Analilia Anaya RN 12/25/2024 Telephone [facility] Gastroenterology [address] [place] [address] [address] [place] [address] Analilia Anaya RN returning pt call 12/23/2024 1:36 PM CDT Anesthesia Event [facility] [address] [place] [phone] Vishnu Weber MD 12/23/2024 1:15 PM CDT - 12/23/2024 2:15 PM CDT Surgery [facility] [address] [place] [phone] Robel Graves MD TRANSORAL LWR ESOPH MYOTOMY [id number] 12/23/2024 12:03 PM CDT - 12/24/2024 2:46 PM CDT Hospital Encounter [address] [address] Robel Graves MD Hart, MD Reyna Steele Bazgha Imtiaz, DO Tahir Ulrich, MD Melanie Rios (Primary Dx) Discharge Disposition: Discharge to home or self care 2024 Telephone [facility] Gastroenterology [address] [place] [address] Medical Office Building [address], [address] [place] [address] Analilia Anaya RN Scheduling Testing/Treatment ; GI Preprocedure; AC hold recs 12/12/2024 12:00 PM CDT Telemedicine [facility] Gastroenterology [address] [facility] 2nd [address] [place] [address] Robel Graves MD Achalasia (Primary Dx) 11/26/2024 Orders Only [facility] Scanning, Provider 11/22/2024 Telephone [facility] Gastroenterology [address] [place] [address] Medical Office Building [address], [address] [place] [phone] Analilia Anaya RN TM scheduling and labs 11/22/2024 Results Follow-Up [facility] Gastroenterology [address] [facility] 2nd [address] [place] [address] Robel Graves MD Surgical pathology 11/21/2024 8:00 AM CDT - 11/21/2024 8:30 AM CDT Surgery [facility] [address] [place] [phone] Robel Graves MD ESOPHAGEAL BALLOON DISTENTION STUDY DIAGNOSTIC WITH PROVOCATION 11/21/2024 7:51 AM CDT Anesthesia Event [facility] [address] [place] [phone] Dano Monae MD 11/21/2024 7:02 AM CDT - 11/21/2024 8:35 AM CDT Hospital Encounter [facility] [address] [place] [phone] Robel Graves MD Achalasia Discharge Disposition: Discharge to home or self care 10/31/2024 Telephone 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 Gender Identity Not on file Sexual [...] COMPREHENSIVE METABOLIC PANEL Routine 5:27 AM CDT VT AN PROCEDURE PLACEHOLDER Routine 11/27 1:58 PM CDT VT AN ELECTIVE ENDOTRACHEAL AIRWAY Routine 12/23/2024 1:58 PM CDT ESOPHAGEAL BALLOON DISTENSIO N STUDY DIAGNOSTIC WITH PROVOCATION 12/23/2024 1:37 PM CDT [facility] Special Needs 23 hr obs, inpt pharm consult TRANSORAL LWR ESOPH MYOTOMY [id number] 12/23/2024 1:37 PM CDT [place] Special Needs [...] CDT 12/24/2024 6:08 AM CDT Melisa Flor UNDERWRITING MANAGER LAB BLOOD ORDERA BLES Final Result [facility] [address] [place] [address] * (ABNORMAL) Differential, auto (12/24/2024 5:27 AM CDT) Neutrophil abs 9.49(H) 1.50 - 6.50 K/cumm Imm gran abs 0.03 0.00 - 0.10 K/cumm [facility] Lymphocyte abs 1.03 0.80 - 3.30 K/cumm [facility] Monocyte abs 1.12(H) 0.20 - 0.80 K/cumm [facility] Eosinophil abs 0.01 0.00 - 0.50 K/cumm [facility] Basophil abs 0.03 0.00 - 0.10 K/cumm [facility] Neutrophil pct 80.9 % [facility] Comment: Interpretive Data Percent cell count reference ranges are not reported, since discordance with absolute values may lead to misinterpretation of CBC data. Current Interpretive Data was last revised on 2017. Imm gran pct 0.3 % [facility] Comment: Interpretive Data Percent cell count reference ranges are not reported, since discordance with absolute values may lead to misinterpretation of CBC data. Current Interpretive Data was last revised on 2017. Lymphocyte pct 8.8 % [facility] Comment: Interpretive Data Percent cell count reference ranges are not reported, since discordance with absolute values may lead to misinterpretation of CBC data. Current Interpretive Data was last revised on 2017. Monocyte pct 9.6 % [facility] Comment: Interpretive Data Percent cell count reference ranges are not reported, since discordance with absolute values may lead to misinterpretation of CBC data. Current Interpretive Data was last revised on 2017. Eosinophil pct 0.1 % [facility] Comment: Interpretive Data Percent cell count reference ranges are not reported, since discordance with absolute values may lead to misinterpretation of CBC data. Current Interpretive Data was last revised on 2017. Basophil pct 0.3 % [facility] Comment: Interpretive Data Percent cell count reference ranges are not reported, since discordance with absolute values may lead to misinterpretation of CBC data. Current Interpretive Data was last revised on 2017. Blood 12/24/2024 5:27 AM CDT 12/24/2024 6:08 AM CDT Melisa Flor UNDERWRITING MANAGER LAB BLOOD ORDERA BLES Final Result [facility] [address] [place] [address] * (ABNORMAL) CBC with auto differential (12/24/2024 5:27 AM CDT) WBC 11.71(H) 3.80 - 9.90 K/cumm Hgb 14.2 13.0 - 17.5 g/dL [facility] Hct 42.5 38.9 - 50.3 % [facility] Plt 122(L) 150 - 400 K/cumm [facility] MPV 12.5(H) 9.1 - 12.3 fL [facility] RBC 4.22(L) 4.30 - 5.80 M/cumm [facility] MCV 100.7(H) 81.3 - 96.4 fL [facility] MCH 33.6(H) 27.1 - 33.3 pg [facility] MCHC 33.4 32.3 - 35.7 g/dL [facility] RDW CV 11.6 11.1 - 14.9 % [facility] RDW SD 42.9 35.7 - 48.1 fL [facility] NRBC abs 0.00 0.00 - 0.01 K/cumm [facility] Blood 12/24/2024 5:27 AM CDT 12/24/2024 6:08 AM CDT Melisa Flor UNDERWRITING MANAGER LAB BLOOD ORDERA BLES Final Result [facility] [address] Department [place] [address] * (ABNORMAL) Comprehensive metabolic panel (12/24/2024 5:27 AM CDT) [facility] Sodium 139 135 - 145 mmol/L Potassium, pl 4.3 3.3 - 4.9 mmol/L [facility] Chloride 103 97 - 110 mmol/L [facility] CO2 24 22 - 32 mmol/L [facility] Anion gap 12 2 - 15 mmol/L [facility] BUN 10 6 - 25 mg/dL [facility] Creatinine 0.71(L) 0.80 - 1.30 mg/dL [facility] Glucose 96 70 - 199 mg/dL [facility] Comment: Interpretive Data Fasting glucose >/= 126 [...] Calcium 9.3 8.5 - 10.3 mg/dL [facility] Bilirubin, total 0.7 0.1 - 1.2 mg/dL [facility] Protein, pl 6.4(L) 6.5 - 8.5 g/dL [facility] Albumin 4.0 3.5 - 5.0 g/dL [facility] Alk phos 47 40 - 130 Units/L [facility] ALT 11 7 - 55 Units/L [facility] AST 15 10 - 50 Units/L [facility] Blood 12/24/2024 5:27 AM CDT 12/24/2024 6:08 AM CDT us Melisa Flor UNDERWRITING MANAGER LAB BLOOD ORDERA BLES Final Result [facility] [address] Department [place] [address] * VT AN ELECTIVE ENDOTRACHEAL AIRWAY, VT AN PROCEDURE PLACEHOLDER (12/23/2024 1:58 PM CDT) Narrative Marlin Harding CRNA - 12/23/2024 1:58 PM CDT Marlin Harding CRNA 12/23/2024 1:59 PM Airway Patient location: OR (GI) Urgency: elective Date/time: 12/23/2024 1:45 PM Indications for airway management: anesthesia Difficult airway: no Staff: Supervising provider: Vishnu Weber MD Placed by: [employer]: Marlin Harding CRNA Emergent airway documentation: Risks [...] 12/23/2024 1:19 PM Admit Type: Outpatient Room: [facility] 4 Date of : 1955 Instrument Name: [...] the days following this procedure please call [phone] ask for my nurse, Analilia Anaya. After hours and evenings please call [phone] and speak to theGI fellow vest front presser. Please tell the fellow that Dr. Graves did your procedure and that you were instructed to have the fellow call me or thephysician covering for me to discuss the management of your condition. If you have an urgent problem, please goto the nearest emergency room and have the ER doctorcall my office during the day or [facility] transfer ([phone]) center after hours and weekends to arrange [...] biopsy) 11/21/2024 7:56 AM CDT Narrative PATHOLOGY [facility] - 11/22/2024 7:57 AM CDT [address] [address] Tele: Lilly Cervantes MD - Estimator And Drafter Note to Patients: This report may contain [...] PATHOLOGY REPORT Patient Name: TATE KIM Address: [address] [place] [address] Gender: M : 1955 (Age: 68) Service: Gastro Location: [facility], Hospital #: [id number] Patient Type: [facility] SAME DAY SURGERY Taken: 11/21/2024 Received 11/21/2024 [...] antrum. GROSS DESCRIPTION: Received in formalin [facility] biopsies is a 0.2 x [...] a superficial fashion. Clerical Data Follows A; 03303 REPORT IMAGES AND/OR SCANNED DOCUMENTS ONLY VIEWABLE IN PDF FORMAT The immunohistochemical test(s) cited in this report, if any, was developed and its performance characteristics determined by [facility] Pathology Department. It has not been cleared or approved by the U.S. Food and Drug Administration. The FDA has determined that such clearance or approval is not necessary. This test is used for clinical purposes. It should not be regarded as investigational or for research. [facility] Laboratory is certified under the Clinical [...] part or completely in the following laboratories: [facility], [facility], [address], [place] [address]. us Robel Graves MD LAB PATHOLOGY ORDERABLES Fi nal Result PATHOLOGY [facility] Laboratory Receiving [address] [place] [address] * EGD (11/21/2024 7:43 AM CDT) Anatomical Region Laterality Modality Other Narrative Procedure Note Robel Graves MD - 11/21/2024 7:43 AM CDT ENDOSCOPY LAB Patient Name: Tate Kim Procedure Date: 11/21/2024 7:43 AM Admit Type: Outpatient Room: [facility] Date of : 1955 Instrument Name: [id number] [...] the days following this procedure please call [phone] ask for my nurse, Analilia Anaya. After hours and evenings please call [phone] and speak to theGI fellow vest front presser. Please tell the fellow that Dr. Graves did your procedure and that you were instructed to have the fellow call me or thephysician covering for me to discuss the management of your condition. If you have an urgent problem, please goto the nearest emergency room and have the ER doctorcall my office during the day or [facility] transfer ([phone]) center after hours and weekends to arrange [...] Result from Last 3 Months Insurance MEDICARE [facility] SENIOR [facility]LE[facility] MEDICARE [employer] SENIOR SUPPLEMENT Advance Directives For more information, please contact: [phone] * Full Code (Latest Code Status on File) Date Activated Date Inactivated Comments 12/23/2024 12:50 PM 12/24/2024 6:52 PM * Full Code Date Activated Date Inactivated Comments 11/21/2024 7:18 AM 11/21/2024 12:36 PM Care Teams Tissue Specialist Relationship Specialty Start Date End Date Gunnar Miguel MD [address] [place] [id number] PCP - General Internal Medicine 10/28/24
--- OUTSIDE RECORDS SUMMARY | 2024-12-26 14:23 | XMS_ITS | Encounter Summary ---
Author Organization [facility] Address [address] [place] [address] Phone Care Team Providers Care Marketing Analytics Specialist Name Role Phone Gunnar Miguel MD Primary Care Provider + [phone] Reason for Visit * Reason Onset Date Comments returning pt call 12/25/2024 Encounter Details Date Type Department Care Team (Late st Contact Info) Description 12/25/2024 Telephone [facility] Gastroenterology [address] [place] [address] Medical Office Building [address], [address] [place] [address] Analilia Anaya RN returning pt [...] on file 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
--- OUTSIDE RECORDS SUMMARY | 2024-12-26 14:23 | XMS_ITS | Encounter Summary ---
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
== END 2024-12-26 14:31 | disposition home or self-care (01) ==
PROVIDERS: Emergency Provider Emergency Medicine
DX: K56.41 Fecal impaction (principal)
CPT/HCPCS: 99283